=== PATIENT | male | born 1980 | race Caucasian/White ===

== ENCOUNTER 2025-05-16 09:26 | Outpatient (CLI) | payer BC, SELFPAY ==
--- NOTE | ~2025-05-16 | CT_ITS ---
CT abdomen pelvis wo con Ordering provider: JERRY CameronP-C History: 45 years Male with . Calculus of kidney . Comparison: February 02, 2013 Technique: CT abdomen and pelvis without IV and without oral contrast. Automated exposure control and iterative reconstruction technique were employed. The dose-length product was 1101.73 mGy-cm. Findings: VISUALIZED LOWER CHEST: Subsegmental atelectatic changes in the left bases. UPPER ABDOMINAL ORGANS: Liver: Normal. Gallbladder: Normal. Spleen: Normal. Stomach/duodenum: Normal. Pancreas: Normal. Adrenals: Normal. Kidneys: Large stone is seen in the right renal pelvis measuring 2 x 1.3 cm. Mild right hydronephroti c changes is seen. Other smaller stones are noted. Multiple tiny stones in the left kidney upper, mid and lower poles. PELVIC ORGANS: The bladder is underfilled. BOWEL AND MESENTERY: Colon: No evidence of diverticulitis. Normal appendix. Small Bowel: Normal. No obstruction. Peritoneum/mesentery: No free air or free fluid. No mesenteric lymphadenopathy. RETROPERITONEUM: Normal aorta. No retroperitoneal lymphadenopathy. MUSCULOSKELETAL: Superficial soft tissues: Bilateral fat containing inguinal hernias. Otherwise, The superficial soft tissues are normal. Bones: Normal spine. IMPRESSION: 1. Bilateral kidney stones with the right kidney stone large in size and located in the renal pelvis . Mild right hydronephrotic changes seen. 2. No evidence of appendicitis, diverticulitis or intestinal obstruction. 3. Bilateral fat containing inguinal hernias. Reviewed, dictated and finalized at location A. IMPRESSION: 1. Bilateral kidney stones with the right kidney stone large in size and locat ed in the renal pelvis. Mild right hydronephrotic changes seen. 2. No evidence of appendicitis, diverticulitis or intestinal obstruction. 3. Bilateral fat containing inguinal hernias.
== END 2025-05-16 09:27 | disposition home or self-care (01) ==
PROVIDERS: PCP Nurse Practitioner Family; Visit Provider Nurse Practitioner Family
DX: N20.0 Calculus of kidney (principal); R10.9 Unspecified abdominal pain; K40.20 Bilateral inguinal hernia, without obstruction or gangrene, not specified as recurrent
CPT/HCPCS: 74176

== ENCOUNTER 2025-09-15 03:50 | Emergency (ER) | payer BC, SELFPAY ==
--- OUTSIDE RECORDS SUMMARY | 2025-09-12 05:52 | XMS_ITS | Encounter Summary ---
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 HI NEPHROLITHOTOMY SECONDARY SURG OPERJ CALCULUS Right Percutaneous Nephrolithotomy Second Look Right [place] [address] [place] [address] [place] [id number] Phone: tel: fax: Referral ID Status Reason Start Date Expiration Date Visits Re quested Visits Authorized [id number] 08/03/2025 1 1 Encounter Details Date Type Department Care Team (Latest Contact Info) Description 09/12/2025 5:52 AM CDT - 09/14/2025 5:50 PM CDT Hospital Encounter [facility] [address] [place] [id number] [place] [address] [place] [address] Calcium urolithiasis; Calculus of kidney Discharge Disposition: Discharge to home or self care Social History Tobacco Use Types Packs/Day Years Used Date Smoking Tobacco: Former Cigarettes Comments:Quit 2010 Alcohol Use Standard Drinks/Week Comments Yes 0 (1 standard drink = 0.6 oz pur e alcohol) Social Connection and Isolation Panel Answer Date Recorded In a typical week, how many times do you talk on the phone with family, friends, or neighbors? More than three times a week 09/13/2025 How often do you get togethe r with friends or relatives? More than three times a week 09/13/2025 How often do you attend chur ch or muslim services? Never 09/13/2025 Do you belong to any clubs o r organizations such as mandaeism groups, unions, fraternal or athletic groups, or school groups? No 09/13/2025 How often do you attend meet ings of the clubs or organizations you belong to? Never 09/13/2025 Are you , , di vorced, , never , or living with a partner? Never 09/13/2025 AUDIT-C Answer Date Recorded Q1: How often do you have a drink containing alc ohol? Monthly or less 09/12/2025 Q2: How many drinks containi ng alcohol do you have on a typical day when you are drinking? 1 or 2 09/12/2025 Q3: How often do you have si x or more drinks on one occasion? Never 09/12/2025 Overall Financial Resource Strain (CARDIA) Answe r Date Recorded How hard is it for you to pa y for the very basics like food, housing, medical care, and heating? Not very hard 09/13/2025 Hunger Vital Sign Answer Date Recorded Within the past 12 months, y ou worried that your food would run out before you got the money to buy more. Never true 09/13/20 25 Within the past 12 months, t he food you bought just didn't last and you didn't have money to get more. Never true 09/13/2025 PRAPARE - Transportation Answer Date Re corded In the past 12 months, has l ack of transportation kept you from medical appointments or from getting medications? No 08/30 In the past 12 months, has l ack of transportation kept you from meetings, work, or from getting things needed for daily living? No 09/13/2025 Housing Stability Vital Sign Answer Tai e Recorded In the last 12 months, was t here a time when you were not able to pay the mortgage or rent on time? No 09/13/2025 In the past 12 months, how m any times have you moved where you were living? 0 09/13/2025 At any time in the past 12 m [facility], were you homeless or living in a detention (including now)? No 09/13/2025 [facility] Utilities Answer Date Recorded In the past 12 months has [employer], gas, oil, or water [employer] threatened to shut off services in your home? No 09/13/2025 Personal Safety Answer Date Recorded Have you ever been in or are you currently in a harmful physical or emotional relationship or is someone making you feel afraid or unsafe? Denies 09/12/2025 Sex and Gender Information Value Date Recorded Sex Assigned at Not on file Legal Sex Male 11:36 AM CDT Gender Identity Not on file Sexual Orientation Not on file documented as of this encounter Last Filed Vital Signs Vital Sign Reading Time Taken Comments Blood Pressure 130/69 09/14/2025 7:15 AM CDT Pulse 94 09/14/2025 7:15 AM CDT Temperature 37 C (98.6 F) 09/14/2025 7:15 AM CDT Respiratory Rate 18 09/14/2025 7:15 AM CDT Oxygen Saturation 94% 09/14/2025 7:15 AM CDT Inhaled Oxygen Concentration - - Weight 113.8 kg (250 lb 14.1 oz) 09/12/2025 5:25 PM CDT Height 165.1 cm (5' 5) 09/12/2025 5:25 PM CDT Body Mass Index 41.75 09/12/2025 5:25 PM CDT documented in this encounter Functional Status * AUDIT-C Score Answer Date of Assessment Author 1 09/12/2025 6:03 AM CDT Messi Jones RN * Question Answer Date of Assessment Author Q1: How often do you have a drink containing alcohol? Monthly or less 09/12/2025 6:03 AM CDT Janette Jones RN Q2: How many drinks containing alcohol do you have on a typical day when you are drinking? 1 or 2 09/12/2025 6:03 AM CDT Janette Jones, RN Q3: How often do you have six or more drinks on one occasion? Never 09/12/2025 6:03 AM CDJanette Shen, RN documented as of this encounter Medications at Time of Discharge cephalexin (KEFLEX) 500 mg capsuleIndication s:Prophylaxis, Medical,Urinary Tract/Genitourina ry Infection Take 1 capsule (500 mg total) by mouth 2 (two) times a day for 5 days 10 capsule 09/14/2025 09/19/2025 citalopram (CeleXA) 40 mg tablet Take 1 tablet (40 mg total) by mouth every morning HYDROcodone-aceta minophen (NORCO) 5-325 mg per tabletIndications :Pain Take 1 tablet by mouth every 6 (six) hours as needed for pain for up to 3 days 9 tablet 09/13/2025 09/16/2025 tamsulosin (FLOMAX) 0.4 mg extended release capsule Take 1 capsule (0.4 mg total) by mouth nightly 30 capsule 1 09/13/2025 traZODone (DESYREL) 100 mg tablet Take 1 tablet (100 mg total) by mouth nightly as needed documented as of this encounter Ordered Prescriptions Prescription Sig Dispense Quantity Refills Last Filled Start Date End Date cephalexin (KEFLEX) 500 mg capsuleIndications :Prophylaxis, Medical,Urinary Tract/Genitourinar y Infection Take 1 capsule (500 mg total) by mouth 2 (two) times a day for 5 days 10 capsule 09/14/2025 tamsulosin (FLOMAX) 0.4 mg extended release capsule Take 1 capsule (0.4 mg total) by mouth nightly 30 capsule 1 09/13/2025 HYDROcodone-acetam inophen (NORCO) 5-325 mg per tabletIndications: Pain Take 1 tablet by mouth every 6 (six) hours as needed for pain for up to 3 days 9 tablet 09/13/2025 5 documented in this encounter Discharge Disposition Disposition Code Departure Means Destination Comment s Discharge to home or self care documented in this encounter Progress Notes * Marina Queen NP - 09/13/2025 2:18 PM CDT 09/13/25 1400: Pt seen on afternoon roundsPt returned to room following IR procedure. Pt reports pain is well controlled. He states he had large gush of fluid from right flank incision site when he urinated and feels like it is still leaking. Upon exam, dressing was saturated with clear yellow urine, small amount of serosanguinous fluid. Dressing replaced. Gauze and ABD pad placed. Discussed withDr. Ryan. Pt will have dean catheter replaced and will observe pt overnight to monitor for further leakage from site. Pt and bedside RN updated on plan of care. Restart heparin. SL IVF when tolerating PO well. [facility] * Marina Queen NP - 09/13/2025 8:38 AM CDT UROLOGY SURGERY PROGRESS NOTE Patient Name: Freddy Yu Jr. Date of : 1980 Primary Physician: Magaly Harris NP Admission Date: 09/12/2025 Length of Stay: LOS: 1 day Post-op day: 1 Day Post-Op SUBJECTIVE 09/12/2025: Right Percutaneous Nephrolithotomy by Holland Ryan MD The patient was seen/examined/discussed with Dr. Holland Ryan No acute events overnight Patient doing well, resting in bed. Reports pain to right nephrostomy tube site. Pain is well-controlled on PO tylenol and Tramadol, IVMorphine Denies chest pain, chest pressure, or SOB No nausea or vomiting, NPO this AM. Tolerated regular diet last PM Has not been up out of the bed/ambulatory d/t pain with nephrostomy tube. Reports passing flatus. Dressing to right nephrostomy tube site noted to have small amount of serosanguinous fluid. Nephrostomy tube with bloody urine and clots noted. Dean removed per orders prior to AM rounds. Denies spontaneous void at this time Review of Systems Constitutional: Negative for chills and fever. Respiratory: Negative for shortness of breath and wheezing. Cardiovascular: Negative for chest pain and palpitations. Gastrointestinal: Negative for nausea and vomiting. Genitourinary: Positive for flank pain. Nephrostomy tube to right flank draining red, bloody urine with clots Neurological: Negative for dizziness and loss of consciousness. All other systems reviewed and are negative. OBJECTIVE Vitals Most Recent : Vitals: 09/13/25 0723 BP: 131/61 Pulse: 93 Resp: 16 Temp: 36.4 ??C (97.6 ??F) SpO2: 95% In & Out I/O last 2 completed shifts: In: 2372.5 [I.V.:2372.5] Out: 1535 [Urine:1435; Blood:100] No intake/output data recorded. Recent Labs Lab Units 09/13/25 0602 09/12/25 1503 WBC K/cumm 17.32* -- RBC M/cumm 5.13 -- HEMOGLOBIN g/dL 13.9 14.9 HEMATOCRIT % 41.6 44.8 PLATELETS K/cumm 325 -- Recent Labs Lab Units 09/13/25 0602 SODIUM mmol/L 135 POTASSIUM PLASMA mmol/L 4.0 CHLORIDE mmol/L 98 CO2 mmol/L 24 ANIONGAP mmol/L 13 GLUCOSE mg/dL 147 BUN SERUM mg/dL 19 CREATININE mg/dL 0.98 CALCIUM mg/dL 9.0 Imaging Studies XR Chest 1 Vw Result Date: 09/12/2025 No priors are available for comparison. Minimal bibasilar airspace opacities, which could representatelectasis versus aspiration. No definite pleural effusion. No pneumothorax. Heart size is within normal limits. The radiology attending physician has personally reviewed this study, and had reviewed and/or edited this written report and agrees with it. Electronically signed by: Nagi Vásquez M.D. IR Nephroureteral Stent Placement New Access Right Result Date: 09/12/2025 Successful right percutaneous nephroureteral catheter placement for future he CNL. PLAN: Plans for future PCNL will be per the patient's urologist. Electronically signed by: Demetris Butler M.D. Surgical pathology report ID Type Source Tests Collected by Time Destination A : right kidney stones Tissue Calculus/calculi/stone, gross and Chemical Analysis SURGICAL PATHOLOGY Holland Ryan MD 09/12/2025 1356 Report pending Physical Exam Vitals and nursing note reviewed. Constitutional: Appearance: Normal appearance. HENT: Head: Normocephalic and atraumatic. Eyes: Pupils: Pupils are equal, round, and reactive to light. Cardiovascular: Rate and Rhythm: Normal rate and regular rhythm. Pulses: Normal pulses. Heart sounds: S1 normal and S2 normal. Pulmonary: Effort: Pulmonary effort is normal. Abdominal: Palpations: Abdomen is soft. Tenderness: There is abdominal tenderness. Comments: Nephrostomy tube to right flank draining red, bloody urine with clots. Appropriately tender on exam. Musculoskeletal: General: Normal range of motion. Skin: General: Skin is warm and dry. Capillary Refill: Capillary refill takes less than 2 seconds. Findings: No rash. Neurological: Mental Status: He is alert. Mental status is at baseline. Comments: A&O x 4 Psychiatric: Mood and Affect: Mood normal. Behavior: Behavior normal. ASSESSMENT/PLAN Principal Problem: Calculus of kidney Surgeries: 09/12/2025: Right Percutaneous Nephrolithotomy with Dr. Ryan, Holland Kothari MD Post-op day: 1 Day Post-Op Plan: NPO after midnight following Right Percutaneous Nephrolithotomy CT in am completed to assess residual stone burden Pain is well controlled with multimodal pain medication Pt scheduled to go to IR for nephrostomy removal and antegrade ureteral stent internalization Heparin held by this AM in anticipation of IR procedure Nutrition: NPO Diet. Advance diet to regular following IR procedure Continue IVF until able to tolerate adequate PO intake PRN antiemetics ordered Resp: Encouraged pulmonary toilet, Incentive spirometer 10 times/hour, early ambulation Increase activities/ambulation, encouraged sitting in the bedside chair for all meals and ambulation in the halls VTE ppx: Encouraged OOB when able, sequential compression device use, SQ Heparin, currently held. Present on Admission: Anxiety- Stable, continue home medication Hx of PVCs - no acute events JOBY on CPAP - on home CPAP, tolerating well Hx of Urolithiasis - improving Morbid Obesity, BMI 41 - lifestyle modifications Disposition & Discharge Plan: Patient was seen/examined/discussed with Dr. Holland Ryan. Care plan discussed with the patient. Discharge home possibly today vs tomorrow pending eval s/p R procedure. Plan to follow-up with Dr. Holland Ryan in 1 month for ureterogram and stent removal Code status: Full Code MAK Banuelos 09/13/2025 10:25 AM Surgical Home documented in this encounter H&P Notes * Holland Ryan MD - 09/12/2025 7:50 AM CDT I have reviewed the H&P, examined the patient, and endorse the findings as written. Plan of Care : Based on the above findings, I consider Freddy Yu Jr. to be an acceptable risk for : Procedure(s): Right Percutaneous Nephrolithotomy I have discussed the risks of this procedure including injury to surrounding anatomic structures, hemorrhage, urinoma, pneumothorax, urinoma, infection/sepsis, need for stent or nephrostomy for prolonged period, injury to the kidney, need for further surgery, inability to access kidney or stone, pos toperative pain, anesthetic complication. Source Note - Dl Mckinley DO - 09/04/2025 7:24 AM CDT Images from the original note were not included. Anesthesia Evaluation Freddy Yu Jr. is a 45 y.o. male presenting for [facility] preoperative anesthesia evaluation prior to Right Percutaneous Nephrolithotomy scheduled on 09/12/2025 with Holland Jo MD Right Percutaneous Nephrolithotomy (Right: Flank) Pre-Op Diagnosis Codes: * Calculus of kidney [N20.0] Anesthesia History: Denies personal hx of problems with anesthesia. No anesthesia problems/complications Denies known family hx of anesthesia complications. HISTORY Past Medical History Information obtained from: patient and chart. Information obtained during: In Person Neurological + Psychiatric history - anxiety Cardiovascular + Other arrhythmia - PVCs. Respiratory + Sleep apnea (JOBY) Prescribed device: PAP compliant and CPAP. Pertinent negatives: non-smoker (quit in 2010) Hepatic / Heme Hepatic/Heme system: negative Renal / + Nephrolithiasis Musculoskeletal/Pain Musculoskeletal/Pain system: negative Endocrine / Other + Obesity (BMI >30)- morbid obesity (BMI>40). Functional Capacity Functional capacity: 4-6 METs Review of Systems + palpitations + vision loss (glasses) Pertinent negatives: productive cough; wheezing; SOB; recent cold/flu; fever; chest pain; orthopnea; pedal edema; PND; Sickle Cell disease/trait; transfusion reaction; easy bruising; dizziness; muscle weakness; numbness/tingling; hard of hearing; heartburn; nausea; dysphagia; diarrhea; dentures/partials; chipped/loose teeth and abdominal pain Patient Active Problem List Diagnosis Date Noted Calculus of kidney 08/03/2025 No past medical history on file. Past Surgical History: Procedure Laterality Date LITHOTRIPSY No Known Allergies Med List Status: Nurse Complete Set By: Kathy Akers RN at 09/04/2025 7:19 AM Taking? Last Dose Start Date End Date Provider citalopram (CeleXA) 40 mg tablet -- -- -- Brittni Chau MD HYDROcodone-acetaminophen (NORCO) 5-325 mg per tablet -- -- -- Brittni Chau MD traZODone (DESYREL) 100 mg tablet -- -- -- ProviderBrittni MD -- -- -- Current Outpatient Medications: citalopram (CeleXA) 40 mg tablet HYDROcodone-acetaminophen (NORCO) 5-325 mg per tablet traZODone (DESYREL) 100 mg tablet Social History Tobacco Use Smoking Status Former Types: Cigarettes Smokeless Tobacco Not on file Tobacco Comments Quit 2010 Alcohol Use: Not At Risk (09/04/2025) AUDIT-C Frequency of Alcohol Consumption: Monthly or less Average Number of Drinks: 1 or 2 Frequency of Binge Drinking: Never Substance and Sexual Activity Drug Use Yes Frequency: 7.0 times per week Types: Marijuana, Alcohol No family history on file. PAT Physical Exam Airway Exam: Mallampati: II Cervical ROM: FROM Patient presents with ervin. Cardiovascular Exam: Rate: regular Rhythm: regular Negative for Murmur No extra heart sounds appreciated Negative for peripheral edema Pulmonary Exam: LCTA, bilat EENT Exam: trachea midline Dental Exam: Appears intact Skin Exam: Skin is warm. Current state: Patient's current state is cooperative and interactive. Vitals: 09/04/25 0720 BP: 143/94 Pulse: 74 SpO2: 99% Neuro & Vascular Studies: None Cardiac Studies: None Pulmonary Studies: None Lab Studies: CBC Lab Results Component Value Date WBC 9.06 09/04/2025 HGB 14.0 09/04/2025 HCT 40.9 09/04/2025 LABPLAT 264 09/04/2025 MPV 9.2 09/04/2025 RBC 5.03 09/04/2025 MCV 81.3 09/04/2025 MCH 27.8 09/04/2025 MCHC 34.2 09/04/2025 RDWCV 13.9 09/04/2025 RDWSD 40.5 09/04/2025 NRBCABS 0.00 09/04/2025 Type & Screen Lab Results Component Value Date ABORH O Negative 09/04/2025 IDCOOMB Negative 09/04/2025 Coagulation Studies Lab Results Component Value Date PT 12.1 09/04/2025 INR 1.07 09/04/2025 APTT 32 09/04/2025 CMP/BMP Lab Results Component Value Date SODIUM 136 09/04/2025 POTASSIUM 3.7 09/04/2025 CHLORIDE 103 09/04/2025 CO2 23 09/04/2025 ANIONGAP 10 09/04/2025 BUNSER 15 09/04/2025 CREATININE 0.88 09/04/2025 GFRNAA >90 09/04/2025 GLUCOSE 93 09/04/2025 CALCIUM 9.0 09/04/2025 A1C Lab Results Component Value Date HGBA1C 5.5 09/04/2025 Urine studies Lab Results Component Value Date COLORU Yellow 09/04/2025 CLARITYU Clear 09/04/2025 SPECGRAVU 1.026 09/04/2025 PHURINE 7.0 09/04/2025 KETONESU Negative 09/04/2025 NITRITEU Negative 09/04/2025 LEUKESTUR 1+ (A) 09/04/2025 PROTURQL 1+ (A) 09/04/2025 BLOODUR Trace (A) 09/04/2025 UROBILINOGEN <2.0 09/04/2025 Urine microbiology Lab Results Component Value Date WBCU 6-10 (A) 09/04/2025 RBCU 0-2 09/04/2025 EPISQUAMU 1-5 09/04/2025 HYALCASTU 1-5 09/04/2025 MUCUSU Present (A) 09/04/2025 BACTERIAU Trace (A) 09/04/2025 Urine culture No results found for: MICROBIOLOGY Assessment & Plan: Freddy Yu Jr. is a 45 y.o. male with no clinical risk factors per ACC/AHA guidelines with moderate functional capacity for an intermediate risk procedure. Indicated lab/diagnostic studies were ordered per anesthesia guidelines and results reviewed. The patient received education regarding the pre-operative and post-operative period, including instructions on using the surgical scrub kit the night prior to surgery and the morning of surgery to decrease the risk of infection. The patient was instructed to call their surgeon should they develop an infection prior to surgery. The patient verbalized understanding of the education received and was allowed to ask questions as needed. A paper copy of the instructions was provided to the patient. SEC evaluation complete on 09/04/25 at 10:34 AM. Nitish index score: 100 DOS Physical Exam , , Medical history, medications, and allergies reviewed. Attestation: With today's edits, I endorse the findings of the anesthesia pre-evaluation assessment dated: 09/12/2025. Airway Exam: Mallampati: II Cervical ROM: FROM Cardiovascular Exam: Rate: regular Rhythm: regular Pulmonary Exam: (Non-labored breathing) Dental Exam: Appears intact Current state: Patient's current state is cooperative. Anesthesia Plan ASA 3 My patient is approved for the Anesthesia Controlled Medication protocol when under care of a BLACK TOP RAKER Planned anesthesia: General Team communication plan: oral ET tube Induction: Induction: intravenous. Postoperative Plan: Postoperative administration opioids intended. No postoperative mechanical ventilation intended. Patient's planned disposition post procedure is Floor. Informed Consent: Discussed plan with BLACK TOP RAKER. Anesthesia plan and risks discussed with patient. Consent and Attending signature: I and/or my designee have discussed the anesthesia plan, benefits, possible alternatives, parental presence at time of induction (if indicated), and clinically relevant risks that may include dental injury, unintentional awareness, and/or other complications. The patient and/or parent/legal guardian understand, and agree to proceed. All questions answered. documented in this encounter Miscellaneous Notes * Plan of Care - Miguelina Donahue RN - 09/14/2025 8:49 AM CDT 09/14/25 0849 Discharge Summary Discharge Disposition Private residence Recommended Discharge Level of Care Private residence Actual Discharge Level of Care Private residence Post Acute Care Plan Post Acute Care Needs Identified No Discharge Additional Assistance Does the patient need discharge transport arranged? No Pt to discharge home today with no needs. * Plan of Care - Allie Reeves RN - 09/14/2025 3:29 AM CDT Problem: Discharge Planning Goal: Understanding discharge needs will improve Outcome: Adequate for Discharge Problem: Lack of Knowledge Goal: Ability to develop a pain control plan will improve Outcome: Adequate for Discharge Problem: Medication Goal: Satisfaction with pain management medication regimen will improve Outcome: Adequate for Discharge Problem: Sensory Goal: Ability to identify factors that increase pain levels will improve while working to decrease the patient's pain levels Outcome: Adequate for Discharge Problem: Coping Goal: Ability to cope will improve Outcome: Adequate for Discharge Problem: Health Behavior Goal: Identification of resources available to assist in meeting health care needs will improve Outcome: Adequate for Discharge Problem: Genitourinary Goal: Urinary catheter remains patent Outcome: Adequate for Discharge Goals: Summary: pt states 0/10 pain. Pt's dean is patent and discharge from old nephro site is minimal. Pt has been sleeping well throughout the shift with no complaints or acute changes. * Plan of Care - Bita Aldridge RN - 09/13/2025 6:35 PM CDT Problem: Discharge Planning Goal: Understanding discharge needs will improve Outcome: Progressing Problem: Lack of Knowledge Goal: Ability to develop a pain control plan will improve Outcome: Progressing Problem: Coping Goal: Ability to cope will improve Outcome: Progressing Problem: Genitourinary Goal: Urinary catheter remains patent Outcome: Progressing Goals: Summary: Patient went to IR today and came back with no complaints of pain. Nephrostomy tube site still leaking. Reinserted dean. Tolerating current diet. Needs attended. Call light within reach. * Post-Procedure Note - Lauri Marshall MD - 09/13/2025 12:55 PM CDT Radiology Brief Post Procedure Note Attending: Joanna Child Development Assistant: none Sedation/Anesthesia: Min Sedation Pre-Op/Pre-Procedure Diagnosis: s/p PCNL Post-Op/Post-Procedure Diagnosis: as above Procedure Performed: conversion of PCNU to double J stent. Procedure Findings: indwelling PCNU retracted 16 dean not in renal pelvis, distal NU catheter in distal ureter. Convertd to 24 cm 8.5 fr double J. Debris in collecting system/calcyes Complications: None Estimated Blood Loss: < 30 ml Specimens: None Condition: Stable Full report to follow. * Initial Assessments - Miguelina Donahue RN - 09/13/2025 12:48 PM CDT CM Initial Assessment Interview Note Information Obtained From: Patient (09/13/251245) Admission Source: Planned Procedure Impression: Calculus of Kidney Plan Includes: Anticipate discharge home Additional Information: Demographics verified. Pt lives alone and is independent at home. Family able to assist at home if needed. Pt doesn't use any DME. Family to provide transportation at discharge. Primary Source of Transportation: Does the patient need discharge transport arranged?: No (09/13/251245) Health Insurance Coverage: BCBS Prescription Coverage: Yes Pharmacy: No Pharmacies Listed Primary Care Provider: Magaly Harris NP Prior to Admission: Functional Status: Independent with ADLs Primary Caregiver: Self Support System: Spouse/Significant Other, Parent When was the last time you have seen your PCP?: Within last 6 months Home Care Services: No Durable Medical Equipment: None Living Arrangements: Alone Type of Residence: Private residence Medication management: Independent (09/13/251245) SDOH: Transportation: In the past 12 months, has lack of transportation kept you from medical appointments or from getting medications?: No In the past 12 months, has lack of transportation kept you from meetings, work, or from getting things needed for daily living?: No (09/13/251243) Financial Resource: How hard is it for you to pay for the very basics like food, housing, medical care, and heating?: Not very hard (09/13/251243) Housing: In the last 12 months, was there a time when you were not able to pay the mortgage or rent on time?: No In the past 12 months, how many times have you moved where you were living?: 0 At any time in the past 12 months, were you homeless or living in a detention (including now)?: No (09/13/251243) Utilities: No, (09/13/251243) Social Connections: In a typical week, how many times do you talk on the phone with family, friends, or neighbors?: More than three times a week How often do you get together with friends or relatives?: More than three times a week How often do you attend mandaeism or muslim services?: Never Do you belong to any clubs or organizations such as mandaeism groups, unions, fraternal or athletic groups, or school groups?: No How often do you attend meetings of the clubs or organizations you belong to?: Never Are you , , , , never , or living with a partner?: Never (09/13/251244) Food Insecurity: Within the past 12 months, you worried that your food would run out before you got the money to buymore.: Never true Within the past 12 months, the food you bought just didn't last and you didn't have money to get more.: Never true (09/13/251244) Behavioral Health Services: Anticipated Level of Care: Anticipated discharge level of care: Private residence Pt/Family agrees with Anticipated Level of Care: Yes (09/13/251245) Patient expects to be Discharged to: Private residence, (09/13/251245) Patient's Identified Problem/Goal Problem: Ensure acute medical needs are met and that patient has a safe discharge plan. Goal: Secure a discharge plan that patient/family are agreeable with and ensure patient has continuum of care. Case management will follow for discharge planning and send referrals as needed. Miguelina Donahue RN * Pre-Procedure Note - Lauri Marshall MD - 09/13/2025 12:16 PM CDT Radiology Short Sedation Form Indication: 45 y/o M s/p right PCNU presents for conversion to internal double J Planned Procedure: conversion of right PCNU to double J stent Planned Sedation/Anesthesia: minimal sedation Adjunctive Procedures: NONE History of Sedation/Anesthesia Complications: No See H&P dated 09/13/25 for details of history, review of systems, physical exam, labs, imaging data and assessment. Changes in patient condition since prior assessment: none Most Recent Vitals: Vitals: 09/13/25 1143 BP: 140/79 Pulse: 98 Resp: 18 Temp: 36.8 ??C (98.3 ??F) SpO2: 92% Airway assessment: normal ASA Score: ASA 2 - Patient with mild systemic disease with no functional limitations NPO time: after midnight Benefits, risks and alternatives of procedure and planned sedation have been discussed with the patient and/or their reimbursement representative. All questions answered and they agree to proceed. * Plan of Care - Manuela Willams RN - 09/13/2025 6:34 AM CDT Goals: Monitor pain mgmt, medications and dean and neph tube care Summary: Nursing to Nursing Communication FATIMAH: DC Transport barriers: No PT/OT orders: No CM anticipated level of care: independent Mobility Barriers (i.e patient refusal, surgical restrictions, safety concerns, etc.): none Lines/Drains: Peripheral IV 09/12/25 20 G Left;Posterior Hand (Active) Nephrostomy Right 18 Fr. (Active) Wound 09/12/25 Skin Tear Other (Comment) (Active) Last BM: Last BM Date: 09/11/25 Medical Barriers: IV medications Incomplete Orders/Imaging/Consults: Significant events over the last shift: Pt states pain is managed with iv and oral pain medications. Zofran given along with iv pain medications for nausea prevention. Dean catheter d/c'd per order this am, due to void by 1130. Nephrostomy tube with red output. Went to CT KUB this am. Pt is NPO . Will continue to monitor and assess. * Plan of Care - Bita Aldridge RN - 09/12/2025 5:57 PM CDT Problem: Discharge Planning Goal: Understanding discharge needs will improve Outcome: Progressing Problem: Lack of Knowledge Goal: Ability to develop a pain control plan will improve Outcome: Progressing Problem: Medication Goal: Satisfaction with pain management medication regimen will improve Outcome: Progressing Problem: Coping Goal: Ability to cope will improve Outcome: Progressing Goals: Summary: Patient alert and oriented. Pain medication given when due and needed. Instructed on the importance of IS. SCD's on. * Op Note - Holland Ryan MD - 09/12/2025 1:00 PM CDT SURGEON: Holland Ryan M.D. PREOPERATIVE DIAGNOSIS: Right Renal Stone. POSTOPERATIVE DIAGNOSIS: Right Renal Stone. PROCEDURES PERFORMED: Right percutaneous nephrolithotomy, greater than 2 cm. 2. Antegrade Nephrostogram. 3. Dilation of existing tract, percutaneous, for an endourologic procedure including imaging guidance and all associated radiological supervision and interpretation, with postprocedure tube placement. COMPLICATIONS: None apparent. EBL 100 mL. DRAINS: 16F Dean 18F [place] Right Percutaneous Nephrostomy 6F Right Pup Stent INDICATION FOR PROCEDURE: This pleasant patient was found to have nephrolithiasis. The patient presents today for definitive stone management with percutaneous nephrolithotomy. They understand the risks of the procedure include, but are not limited to infection, bleeding, pain, injury to the kidney, ureter, bladder, injury to surrounding structures, need for additional operations, and complication of the anesthetic. They understand and agree to proceed. DESCRIPTION OF OPERATION: Informed consent was obtained. Patient was taken to the intervention radiology suite where they underwent nephroureteral stent insertion through the lower pole calyx. For details of this procedure, please see dictated summary. They were then was brought to the operating room and given preoperative IV antibiotics. Anesthesia was induced. They were prepped and draped in the normal sterile fashion in the supine position. We inserted a flexible cystoscope through the urethra into the bladder. We grasped the nephroureteral stent. It was brought out through the urethral meatus. A 16-Monegasque Dean catheter was inserted. We then placed the patient in a prone position. All pressure points were padded. We again prepped. A 2 cm incision was made adjacent to the wires. We then dilated with an 8/10 coaxial dilator in order to achieve 2- wire access. We advanced the NephroMax balloon into the mid pole calyx. An access sheath was inserted, under fluoroscopic guidance. We then inserted the rigid nephroscope. We encountered multiple stones that evacuated using the ultrasound device and suction silk spotter. Once all stone fragments were evacuated, we inserted a flexible cystoscope. We inspected each calyx under fluoroscopic guidance. We then removed residual stones with the ZeroTip basket and sent these as specimen. Again, an antegrade nephrostogram was performed. There was no extravasation and there were no residual filling defects. We passed the flexible scope into each calyx and there were no residual significant stones seen. We then placed a 6- Monegasque single-J stent with a curl in the bladder and over the stent, a 18-Monegasque [place] tip catheter to act as a nephrostomy tube. The stent was secured to the skin. The skin was closed with horizontal mattress 3-0 chromic suture. A pressurized dressing was placed and patient was taken to the recovery room in stable condition. DISPOSITION: The patient will have a CT scan performed tomorrow and we will proceed with additional interventions as necessary per the imaging. * Post-Procedure Note - Demetris Butler MD - 09/12/2025 8:29 AM CDT Vascular and Interventional Radiology Brief Post Procedure Note Attending: Demetris Butler MD Child Development Assistant: None Sedation/Anesthesia: Min Sedation Pre-Op/Pre-Procedure Diagnosis: Right renal calculus Post-Op/Post-Procedure Diagnosis: as above Procedure Performed: Right NUS placement Procedure Findings: Successful right NUS placement via right lower pole Complications: None Estimated Blood Loss: < 30 ml Specimens: None Condition: Stable Full report to follow. * Pre-Procedure Note - Demetris Butler MD - 09/12/2025 8:28 AM CDT Radiology Long Sedation Form Indication: Right renal calculus Planned Procedure: Right NUS Planned Sedation/Anesthesia: minimal sedation History: 45M with staghorn calculus in the right kidney. PMH/PSH: Past Medical History: Diagnosis Date JOBY on CPAP Palpitations w/increased movement intermittently and lots of caffeine Past Surgical History: Procedure Laterality Date LITHOTRIPSY ROS: Review of systems per HPI and otherwise all other systems are negative Allergies: Patient has no known allergies. Current Meds: Current Facility-Administered Medications: Carrier Fluids for Secondary Infusion - 0.9% Sodium Chloride, 30 mL, intravenous, PRN, Jim Holman PA Saline lock IV, , , Once AND sodium chloride 0.9% flush 0.5-20 mL, 0.5-20 mL, intra-catheter, Q8H RHETT (ALT) AND sodium chloride 0.9% flush 0.5-20 mL, 0.5-20 mL, intra-catheter, PRN AND Carrier Fluids for Secondary Infusion - 0.9% Sodium Chloride, 30 mL, intravenous, PRN, Jim Holman PA cefTRIAXone (ROCEPHIN) 2,000 mg/20 mL in sterile water (premix) 2,000 mg, 2,000 mg, intravenous, Once, Holland Ryan MD dextrose (D10W) 10% bolus 250 mL, 250 mL, intravenous, Once PRN, Dl Mckinley DO fentaNYL (SUBLIMAZE) preservative free injection, , intravenous, PRN, Demetris Butler MD, 50 mcg at 09/12/25 0827 Lactated Ringer's (LR) infusion, 30 mL/hr, intravenous, Continuous, Jim Holman PA, Last Rate: 30 mL/hr at 09/12/25 0702, 30 mL/hr at 09/12/25 0702 lidocaine (PF) (XYLOCAINE) 10 mg/mL (1 %) preservative free injection 2-10 mg, 0.2-1 mL, other, Once PRN, Jim Holman PA lidocaine (PF) (XYLOCAINE) 10 mg/mL (1 %) preservative free injection, , , PRN, Demetris Butler MD, 10 mL at 09/12/25 0821 midazolam (VERSED) 1 mg/mL injection, , , PRN, Demetris Butler MD, 1 mg at 09/12/25 0827 sodium chloride 0.9% flush 0.5-20 mL, 0.5-20 mL, intra-catheter, PRN, Jim Holman PA sodium chloride 0.9% flush 0.5-20 mL, 0.5-20 mL, intra-catheter, Q8H RHETT, Dl Mckinley DO sodium chloride 0.9% flush 0.5-20 mL, 0.5-20 mL, intra-catheter, PRN, Dl Mckinley DO Physical exam: General: Not in acute distress, alert and oriented x3 Respiratory: Clear to auscultation bilaterally, normal respiratory effort Cardiovascular: Regular rate Abdomen: Soft, nondistended, nontender Extremities: No edema Most Recent Vitals: Vitals: 09/12/25 0810 BP: 131/79 Pulse: 82 Resp: 17 Temp: SpO2: 100% Airway Assessment: normal Labs/Imaging: reviewed Assessment: Right NUS placement for future PCNL ASA Score: 2 NPO time: after midnight Benefits, risks and alternatives of procedure and planned sedation have been discussed with the patient and/or their reimbursement representative. All questions answered and they agree to proceed. documented in this encounter Plan of Treatment Pending Results Name Type Priority Associated Diagnoses Date /Time Stone analysis Lab Routine 09/12/2025 1:56 PM CDT Scheduled Orders Name Type Priority Associated Diagnoses Order Schedule Surgical pathology Pathology and Cytology Timed Calculus of kidney Release Upon Ordering for 1 Occurrences starting 09/12/2025 Stone analysis Lab Routine Once for 1 Occurrences starting 09/12/2025 until 09/12/2025 documented as of this encounter Procedures Procedure Name Priority Date/Time Associated Diagnosis Comments EGFR Routine 09/14/2025 4:32 AM CDT CBC WITHOUT DIFFERENTIAL Routine 09/14/2025 4:32 AM CDT BASIC METABOLIC PANEL Routine 09/14/2025 4:32 AM CDT XR ABDOMEN AP 1 VIEW IP Routine 09/13/2025 3:36 PM CDT URETERAL STENT PLACEMENT VIA EXISTING TRACT RIGHT IP Routine 09/13/2025 12:52 PM CDT EGFR Routine 09/13/2025 6:02 AM CDT CBC WITHOUT DIFFERENTIAL Routine 09/13/2025 6:02 AM CDT BASIC METABOLIC PANEL Routine 09/13/2025 6:[address] KUB STONE WO CONTRAST IP Routine 09/13/2025 4:32 AM CDT HEMOGLOBIN AND HEMATOCRIT STAT 09/12/2025 3:03 PM CDT XR CHEST 1 VIEW ED Urgent/IP Urgent 09/12/2025 2:48 PM CDT FL FLUOROSCOPY < 1 HOUR IP Routine 09/12/2025 2:02 PM CDT PERCUTANEOUS NEPHROLITHOTOMY 09/12/2025 12:31 PM CDT Calculus of kidney B CHECK SAMPLE STAT 09/12/2025 12:16 PM CDT NEPHROURETERAL STENT PLACEMENT NEW ACCESS RIGHT Schedule Routine, Read Routine (OP Routine) 09/12/2025 8:09 AM CDT Calcium urolithiasis documented in this encounter Results * eGFR (09/14/2025 4:32 AM CDT) eGFR >90 >=60 mL/min/1. 73 m2 Comment: Interpretive Data Reference Interval Normal >/= 90 mL/min/1.73m2 Mildly decreased* 60 - 89 mL/min/1.73m2 Mildly to moderately decreased 45 - 59 mL/min/1.73m2 Moderately to severely decreased 30 - 44 mL/min/1.73m2 Severely decreased 15 - 29 mL/min/1.73m2 Kidney Failure < 15 mL/min/1.73m2 *Relative to young adult level Estimated glomerular filtration rate is determined by the 2020 CKD-EPI equation recommended by the National Kidney Foundation (A Unifying Approach to GFR Estimation: Recommendations of the NKF-ASK Task Force on Reassessing the Inclusion of Race in Diagnosing Kidney Disease, JASN 2020). The CKD-EPI equation should not be used for patients with unstable renal function and has not been validated in children and those over 70. Current interpretive data was last reviewed 2021. Blood 09/14/2025 4:32 AM CDT 09/14/2025 5:59 AM CDT Holland Ryan MD LAB BLOOD ORDERABLES Final Result [facility] [address] Department [place] [address] * (ABNORMAL) Basic metabolic panel (09/14/2025 4:32 AM CDT) Pathologist [facility] Sodium 139 135 - 145 mmol/L Potassium, pl 3.6 3.3 - 4.9 mmol/L [facility] Chloride 102 97 - 110 mmol/L [facility] CO2 25 22 - 32 mmol/L [facility] Anion gap 12 2 - 15 mmol/L [facility] BUN 19 6 - 25 mg/dL [facility] Creatinine 0.92 0.80 - 1.30 mg/dL [facility] Glucose 83 70 - 199 mg/dL [facility] Comment: Interpretive Data Fasting glucose >/= 126 mg/dl is diagnostic for diabetes. Fasting is defined as no caloric intake for at least 8 hours. Fasting glucose between 100 mg/dl to 125 mg/dl is diagnostic of prediabetes. In a patient with classic symptoms of hyperglycemia or hyperglycemic crisis, a random glucose >/= 200 mg/dl is diagnostic for diabetes. In the absence of unequivocal hyperglycemia, results should be confirmed by repeat testing. The classification and Diagnosis of Diabetes Diabetes Care 202; 46: S19-S40. Current interpretive data was last revised 2022. Calcium 8.1(L) 8.5 - 10.3 mg/dL [facility] Blood 09/14/2025 4:32 AM CDT 09/14/2025 5:59 AM CDT Holland Ryan MD LAB BLOOD ORDERABLES Final Result [facility] [address] Department [place] [address] * (ABNORMAL) CBC without differential (09/14/2025 4:32 AM CDT) WBC 11.95(H) 3.80 - 9.90 K/cumm Hgb 13.0 13.0 - 17.5 g/dL [facility] Hct 39.1 38.9 - 50.3 % [facility] Plt 238 150 - 400 K/cumm [facility] MPV 9.4 9.1 - 12.3 fL [facility] RBC 4.68 4.30 - 5.80 M/cumm [facility] MCV 83.5 81.3 - 96.4 fL [facility] MCH 27.8 27.1 - 33.3 pg [facility] MCHC 33.2 32.3 - 35.7 g/dL [facility] RDW CV 14.2 11.1 - 14.9 % [facility] RDW SD 43.1 35.7 - 48.1 fL [facility] NRBC abs 0.00 0.00 - 0.01 K/cumm [facility] Blood 09/14/2025 4:32 AM CDT 09/14/2025 5:59 AM CDT Holland Ryan MD LAB BLOOD ORDERABLES Final Result [facility] [address] Department [place] [address] * X-ray abdomen 1 view (09/13/2025 3:36 PM CDT) Anatomical Region Laterality Modality Body, Abdomen N/A Computed Radiogr aphy 09/13/2025 4:19 PM CDT Impressions 09/13/2025 4:19 PM CDT 1. Right nephroureteral stent with the tip terminating in the left lower quadrant of the pelvis. 2. Gaseous distention of the colonic bowel loops, likely representing developing ileus. Electronically signed by: Ambrose Kohli MD Narrative 09/13/2025 4:19 PM CDT EXAM: XR ABDOMEN AP 1 VIEW, 09/13/2025 2:35 PM HISTORY: postoperative care COMPARISON: CT abdomen pelvis 09/13/2025 FINDINGS: There is right nephroureteral stent looping and terminating in the left lower quadrant of the pelvis Diffuse gaseous distention of the colonic bowel loops likely represents ileus in the recent postoperative setting. Osseous structures are normal. Procedure Note Ambrose Kohli MD - 09/13/2025 EXAM: XR ABDOMEN AP 1 VIEW, 09/13/2025 2:35 PM HISTORY: postoperative care COMPARISON: CT abdomen pelvis 09/13/2025 FINDINGS: There is right nephroureteral stent looping and terminating in the left lower quadrant of the pelvis Diffuse gaseous distention of the colonic bowel loops likely represents ileus in the recent postoperative setting. Osseous structures are normal. IMPRESSION: 1. Right nephroureteral stent with the tip terminating in the left lower quadrant of the pelvis. 2. Gaseous distention of the colonic bowel loops, likely representing developing ileus. Electronically signed by: Ambrose Kohli MD Holland Ryan MD IMG XR PROCEDURES Fi nal Result * IR Ureteral Stent Placement Via Existing Tract Right (09/13/2025 12:52 PM CDT) Anatomical Region Laterality Modality Body Right X-Ray Angiograph y 09/13/2025 3:32 PM CDT Impressions 09/13/2025 3:32 PM CDT Successful internalization of a right nephroureteral catheter to a double-J ureteral stent detailed above. Plan: Stent management by the patient's urologist. Electronically signed by: Lauri Marshall M.D. Narrative 09/13/2025 3:32 PM CDT EXAM : INTERNALIZATION OF A SIDE NEPHROURETERAL STENT TO A DOUBLE-J URETERAL STENT HISTORY: 45-year-old status post right-sided PCNL presents for conversion of PCNU to double-J stent SEDATION: Moderate conscious sedation was administered under the attending physician's direction and continuous monitoring by a trained nurse specialist who was independent from those actually performing the procedure. The total monitored conscious time was 7minutes. TECHNIQUE/FINDINGS: The risks, benefits and alternatives were discussed and informed consent was obtained. Prior to beginning the procedure, [place] Protocol was performed to confirm the patient?s identity and the planned procedure. The fluoroscopy time has been recorded in the electronic medical record. Maximum sterile barriers including cap, mask, hand hygiene, sterile gloves, sterile gown, large sterile drape and 2% chlorhexidine for cutaneous antisepsis were used. The right flank catheter was sterilely prepped and draped. An Amplatz wire was advanced through the ureteral catheter into the bladder and used to estimate the ureteral distance. The indwelling PCNU was removed. Over the Amplatz wire a 26 cm 8.5 Monegasque double-J ureteral stent was advanced with the distal loop in the bladder and proximal loop in the renal pelvis. Antegrade nephrostogram demonstrated patent ureteral stent with mild hemorrhagic debris within the upper collecting system/pelvis in the collecting system. All sheaths and catheters were removed. A sterile dressing was applied. Estimated Blood Loss: Minimal. Condition: Stable Discharged to: Inpatient unit Findings: No significant hydroureteronephrosis. Hemorrhagic debris seen within the upper pole collecting system. Procedure Note Lauri Marshall MD - 09/13/2025 EXAM : INTERNALIZATION OF A SIDE NEPHROURETERAL STENT TO A DOUBLE-J URETERAL STENT HISTORY: 45-year-old status post right-sided PCNL presents for conversion of PCNU to double-J stent SEDATION: Moderate conscious sedation was administered under the attending physician's direction and continuous monitoring by a trained nurse specialist who was independent from those actually performing the procedure. The total monitored conscious time was 7minutes. TECHNIQUE/FINDINGS: The risks, benefits and alternatives were discussed and informed consent was obtained. Prior to beginning the procedure, [place] Protocol was performed to confirm the patient?s identity and the planned procedure. The fluoroscopy time has been recorded in the electronic medical record. Maximum sterile barriers including cap, mask, hand hygiene, sterile gloves, sterile gown, large sterile drape and 2% chlorhexidine for cutaneous antisepsis were used. The right flank catheter was sterilely prepped and draped. An Amplatz wire was advanced through the ureteral catheter into the bladder and used to estimate the ureteral distance. The indwelling PCNU was removed. Over the Amplatz wire a 26 cm 8.5 Monegasque double-J ureteral stent was advanced with the distal loop in the bladder and proximal loop in the renal pelvis. Antegrade nephrostogram demonstrated patent ureteral stent with mild hemorrhagic debris within the upper collecting system/pelvis in the collecting system. All sheaths and catheters were removed. A sterile dressing was applied. Estimated Blood Loss: Minimal. Condition: Stable Discharged to: Inpatient unit Findings: No significant hydroureteronephrosis. Hemorrhagic debris seen within the upper pole collecting system. IMPRESSION: Successful internalization of a right nephroureteral catheter to a double-J ureteral stent detailed above. Plan: Stent management by the patient's urologist. Electronically signed by: Lauri Marshall M.D. Holland Ryan MD IMG IR PROCEDURES Fi nal Result * eGFR (09/13/2025 6:02 AM CDT) eGFR >90 >=60 mL/min/1. 73 m2 Comment: Interpretive Data Reference Interval Normal >/= 90 mL/min/1.73m2 Mildly decreased* 60 - 89 mL/min/1.73m2 Mildly to moderately decreased 45 - 59 mL/min/1.73m2 Moderately to severely decreased 30 - 44 mL/min/1.73m2 Severely decreased 15 - 29 mL/min/1.73m2 Kidney Failure < 15 mL/min/1.73m2 *Relative to young adult level Estimated glomerular filtration rate is determined by the 2020 CKD-EPI equation recommended by the National Kidney Foundation (A Unifying Approach to GFR Estimation: Recommendations of the NKF-ASK Task Force on Reassessing the Inclusion of Race in Diagnosing Kidney Disease, JASN 2020). The CKD-EPI equation should not be used for patients with unstable renal function and has not been validated in children and those over 70. Current interpretive data was last reviewed 2021. Blood 09/13/2025 6:02 AM CDT 09/13/2025 6:42 AM CDT Holland Ryan MD LAB BLOOD ORDERABLES Final Result [facility] [address] Department [place] [address] * Basic metabolic panel (09/13/2025 6:02 AM CDT) Sodium 135 135 - 145 mmol/L Potassium, pl 4.0 3.3 - 4.9 mmol/L [facility] Chloride 98 97 - 110 mmol/L [facility] CO2 24 22 - 32 mmol/L [facility] Anion gap 13 2 - 15 mmol/L [facility] BUN 19 6 - 25 mg/dL [facility] Creatinine 0.98 0.80 - 1.30 mg/dL [facility] Glucose 147 70 - 199 mg/dL [facility] Comment: Interpretive Data Fasting glucose >/= 126 mg/dl is diagnostic for diabetes. Fasting is defined as no caloric intake for at least 8 hours. Fasting glucose between 100 mg/dl to 125 mg/dl is diagnostic of prediabetes. In a patient with classic symptoms of hyperglycemia or hyperglycemic crisis, a random glucose >/= 200 mg/dl is diagnostic for diabetes. In the absence of unequivocal hyperglycemia, results should be confirmed by repeat testing. The classification and Diagnosis of Diabetes Diabetes Care 202; 46: S19-S40. Current interpretive data was last revised 2022. Calcium 9.0 8.5 - 10.3 mg/dL [facility] Blood 09/13/2025 6:02 AM CDT 09/13/2025 6:42 AM CDT Holland Ryan MD LAB BLOOD ORDERABLES Final Result Performing Organization Address City/[facility]/ZIP Co de Phone Number [facility] [address] [place] [address] * (ABNORMAL) CBC without differential (09/13/2025 6:02 AM CDT) WBC 17.32(H) 3.80 - 9.90 K/cumm Hgb 13.9 13.0 - 17.5 g/dL [facility] Hct 41.6 38.9 - 50.3 % [facility] Plt 325 150 - 400 K/cumm [facility] MPV 9.2 9.1 - 12.3 fL [facility] RBC 5.13 4.30 - 5.80 M/cumm [facility] MCV 81.1(L) 81.3 - 96.4 fL [facility] MCH 27.1 27.1 - 33.3 pg [facility] MCHC 33.4 32.3 - 35.7 g/dL [facility] RDW CV 14.0 11.1 - 14.9 % [facility] RDW SD 41.3 35.7 - 48.1 fL [facility] NRBC abs 0.00 0.00 - 0.01 K/cumm [facility] Blood 09/13/2025 6:02 AM CDT 09/13/2025 6:43 AM CDT Holland Ryan MD LAB BLOOD ORDERABLES Final Result [facility] [address] Department [place] [employer] [place] [address] * CT KUB Stone WO Contrast (09/13/2025 4:32 AM CDT) Anatomical Region Laterality Modality Abdomen N/A Computed Tomogra phy 09/13/2025 8:36 AM CDT Impressions 09/13/2025 8:36 AM CDT 1. Small nonobstructing left renal calculi. No hydronephrosis. 2. Right nephroureteral stent in place with a punctate calculus in the mid right kidney, adjacent to the stent. 3. Small amount of amorphous hyperdense material in the right renal collecting system may represent residual contrast or blood products from recent procedure. No hydronephrosis. Electronically signed by: MD Antonia Ulloa 09/13/2025 8:36 AM CDT EXAMINATION: CT abdomen and pelvis without contrast TECHNIQUE: Computed tomography of the abdomen and pelvis was performed without contrast. HISTORY: Evaluate stone burden after treatment COMPARISON:Outside institution examination performed May 16, 2025. FINDINGS: Abdomen Liver, Gallbladder & bile ducts: The liver is normal in appearance without contrast. There is no biliary dilation. The gallbladder is normal in appearance. Pancreas: Normal in appearance without contrast. Spleen: Normal in appearance without contrast. Adrenals: Normal in appearance without contrast. Kidneys, collecting system and ureters: There are small nonobstructing calculi in the left kidney. There is a right internal-external nephroureteral stent in place with distal end in the distal right ureter. There is a small amount of hyperdense material in the right renal collecting system. There is a punctate calculus in the mid right kidney immediately adjacent to the stent, best seen on image 71/170. There are very small bubbles of gas in the posterior right perinephric space, presumably related to recent catheter placement. There is no hydronephrosis. Retroperitoneum, lymph nodes, and vessels: There is no discrete retroperitoneal lymphadenopathy. Bowel & Mesentery: The bowel is normal in caliber. There is no obstruction. There is no appreciable mesenteric free fluid or lymphadenopathy. Pelvis Bladder: Contains a Dean catheter. Reproductive organs: No mass. Extraperitoneal, lymph nodes, vessels: There is no discrete pelvic lymphadenopathy. There are small bilateral inguinal hernias containing fat. Osseous and body wall: There are no worrisome osteolytic or osteoblastic lesions. Lower chest: The lung bases are included on the examination and show atelectasis. Procedure Note Mita Weeks MD - 09/13/2025 EXAMINATION: CT abdomen and pelvis without contrast TECHNIQUE: Computed tomography of the abdomen and pelvis was performed without contrast. HISTORY: Evaluate stone burden after treatment COMPARISON:Outside institution examination performed May 16, 2025. FINDINGS: Abdomen Liver, Gallbladder & bile ducts: The liver is normal in appearance without contrast. There is no biliary dilation. The gallbladder is normal in appearance. Pancreas: Normal in appearance without contrast. Spleen: Normal in appearance without contrast. Adrenals: Normal in appearance without contrast. Kidneys, collecting system and ureters: There are small nonobstructing calculi in the left kidney. There is a right internal-external nephroureteral stent in place with distal end in the distal right ureter. There is a small amount of hyperdense material in the right renal collecting system. There is a punctate calculus in the mid right kidney immediately adjacent to the stent, best seen on image 71/170. There are very small bubbles of gas in the posterior right perinephric space, presumably related to recent catheter placement. There is no hydronephrosis. Retroperitoneum, lymph nodes, and vessels: There is no discrete retroperitoneal lymphadenopathy. Bowel & Mesentery: The bowel is normal in caliber. There is no obstruction. There is no appreciable mesenteric free fluid or lymphadenopathy. Pelvis Bladder: Contains a Dean catheter. Reproductive organs: No mass. Extraperitoneal, lymph nodes, vessels: There is no discrete pelvic lymphadenopathy. There are small bilateral inguinal hernias containing fat. Osseous and body wall: There are no worrisome osteolytic or osteoblastic lesions. Lower chest: The lung bases are included on the examination and show atelectasis. IMPRESSION: 1. Small nonobstructing left renal calculi. No hydronephrosis. 2. Right nephroureteral stent in place with a punctate calculus in the mid right kidney, adjacent to the stent. 3. Small amount of amorphous hyperdense material in the right renal collecting system may represent residual contrast or blood products from recent procedure. No hydronephrosis. Electronically signed by: Mita Weeks MD Holland Ryan MD IMG CT PROCEDURES Fi nal Result * Hemoglobin and hematocrit (09/12/2025 3:03 PM CDT) Hgb 14.9 13.0 - 17.5 g/dL Hct 44.8 38.9 - 50.3 % [facility] Blood 09/12/2025 3:03 PM CDT 09/12/2025 3:11 PM CDT Holland Ryan MD LAB BLOOD ORDERABLES Final Result [facility] [address] Department [place] [address] * XR Chest 1 Vw (09/12/2025 2:48 PM CDT) Anatomical Region Laterality Modality Body, Chest N/A Computed Radiogr aphy 09/12/2025 3:01 PM CDT Impressions 09/12/2025 3:01 PM CDT No priors are available for comparison. Minimal bibasilar airspace opacities, which could represent atelectasis versus aspiration. No definite pleural effusion. No pneumothorax. Heart size is within normal limits. The radiology attending physician has personally reviewed this study, and had reviewed and/or edited this written report and agrees with it. Electronically signed by: Nagi Vásquez M.D. Narrative 09/12/2025 3:01 PM CDT EXAMINATION: 1 view chest radiograph Procedure Note Nagi Vásquez MD - 09/12/2025 EXAMINATION: 1 view chest radiograph IMPRESSION: No priors are available for comparison. Minimal bibasilar airspace opacities, which could represent atelectasis versus aspiration. No definite pleural effusion. No pneumothorax. Heart size is within normal limits. The radiology attending physician has personally reviewed this study, and had reviewed and/or edited this written report and agrees with it. Electronically signed by: Nagi Vásquez M.D. Holland Ryan MD IMG XR PROCEDURES Fi nal Result * FL Fluoroscopy < 1 Hour (09/12/2025 2:02 PM CDT) Narrative RAD[facility] - 09/12/2025 2:03 PM CDT The images from this study are not interpreted by Radiology. Please refer to the physician's procedure / OR operative note. Holland Ryan MD IMG FLUOROSCOPY PROC EDURES Final Result [facility] * Check Sample (09/12/2025 12:16 PM CDT) ABO Rh O Negative MBC HCLL OTHER 09/12/2025 12:1 6 PM CDT 09/12/2025 12:43 PM CDT Dl Mckinley DO LAB BLOOD ORDERABLES Final Result Performing Organization Address City/[facility]/ZIP Co de Phone Number [facility]FFAN[facility] [address] Department [place] [address] [facility] * IR Nephroureteral Stent Placement New Access Right (09/12/2025 8:09 AM CDT) Anatomical Region Laterality Modality Body Right X-Ray Angiograph y 09/12/2025 2:26 PM CDT Impressions 09/12/2025 2:26 PM CDT Successful right percutaneous nephroureteral catheter placement for future he CNL. PLAN: Plans for future PCNL will be per the patient's urologist. Electronically signed by: Demetris Butler M.D. Narrative 09/12/2025 2:26 PM CDT EXAMINATION : RIGHT PERCUTANEOUS NEPHROURETERAL CATHETER PLACEMENT FOR FUTURE PCNL HISTORY/INDICATION: Renal calculus, planned for future PCNL SEDATION: Procedural sedation was administered under the attending physician's direction and continuous monitoring by a trained nurse specialist who was independent from those actually performing the procedure. Total monitored sedation time was 20 minutes. TECHNIQUE/FINDINGS: The risks, benefits and alternatives were discussed and informed consent was obtained. Prior to beginning the procedure, [place] Protocol was performed to confirm the patient's identity and the planned procedure. The fluoroscopy time has been recorded in the electronic medical record. Maximum sterile barriers including cap, mask, hand hygiene, sterile gloves, sterile gown, large sterile drape and 2% chlorhexidine for cutaneous antisepsis were used. Initial ultrasound imaging was done to localize the kidney and to assess the collecting system as well to identify a possible calyx for initial access. The overlying skin was then prepped and draped in the usual sterile manner and 1% Lidocaine was used to achieve local anesthesia. A 21-gauge micropuncture needle was then used to access the renal collecting system under real-time ultrasound guidance with appropriate needle tip positioning documented by the aspiration of urine and by fluoroscopy following the injection of contrast. Limited contrast injection demonstrated filling defects consistent with the patient's known renal stones. A guidewire was passed into the collecting system, through the ureter and into the bladder. Contrast was then injected to confirm intraluminal placement. Then over a guidewire, a 5 Monegasque 100 cm glide catheter was advanced through the nephrostomy access and into the bladder. The catheter was then secured to the skin and a sterile dressing was applied. ESTIMATED BLOOD LOSS: Minimal. CONDITION: Stable DISCHARGED TO: PACU FINDINGS: Images from the nephrostomy access demonstrate multiple filling defects within the renal pelvis, representing the patient's known renal stones. The last fluoroscopic image demonstrates appropriate positioning of the nephro ureteral catheter looped within the bladder. Procedure Note Demetris Butler MD - 09/12/2025 EXAMINATION : RIGHT PERCUTANEOUS NEPHROURETERAL CATHETER PLACEMENT FOR FUTURE PCNL HISTORY/INDICATION: Renal calculus, planned for future PCNL SEDATION: Procedural sedation was administered under the attending physician's direction and continuous monitoring by a trained nurse specialist who was independent from those actually performing the procedure. Total monitored sedation time was 20 minutes. TECHNIQUE/FINDINGS: The risks, benefits and alternatives were discussed and informed consent was obtained. Prior to beginning the procedure, [place] Protocol was performed to confirm the patient's identity and the planned procedure. The fluoroscopy time has been recorded in the electronic medical record. Maximum sterile barriers including cap, mask, hand hygiene, sterile gloves, sterile gown, large sterile drape and 2% chlorhexidine for cutaneous antisepsis were used. Initial ultrasound imaging was done to localize the kidney and to assess the collecting system as well to identify a possible calyx for initial access. The overlying skin was then prepped and draped in the usual sterile manner and 1% Lidocaine was used to achieve local anesthesia. A 21-gauge micropuncture needle was then used to access the renal collecting system under real-time ultrasound guidance with appropriate needle tip positioning documented by the aspiration of urine and by fluoroscopy following the injection of contrast. Limited contrast injection demonstrated filling defects consistent with the patient's known renal stones. A guidewire was passed into the collecting system, through the ureter and into the bladder. Contrast was then injected to confirm intraluminal placement. Then over a guidewire, a 5 Monegas[place] 100 cm glide catheter was advanced through the nephrostomy access and into the bladder. The catheter was then secured to the skin and a sterile dressing was applied. ESTIMATED BLOOD LOSS: Minimal. CONDITION: Stable DISCHARGED TO: PACU FINDINGS: Images from the nephrostomy access demonstrate multiple filling defects within the renal pelvis, representing the patient's known renal stones. The last fluoroscopic image demonstrates appropriate positioning of the nephro ureteral catheter looped within the bladder. IMPRESSION: Successful right percutaneous nephroureteral catheter placement for future he CNL. PLAN: Plans for future PCNL will be per the patient's urologist. Electronically signed by: Demetris Butler M.D. Holland Ryan MD IM IR PROCEDURES Fi nal Result documented in this encounter Visit Diagnoses Diagnosis Calculus of kidney- Primary Calcium urolithiasis Urolithiasis Unspecified urinary calculus documented in this encounter Admitting Diagnoses Diagnosis Calculus of kidney Urolithiasis Unspecified urinary calculus documented in this encounter Administered Medications Inactive Administered Medications - up to 3 most recent administrations Medication Order MAR Action Action Date Dose Rate Site acetaminophen (TYLENOL) tablet 1,000 mg 1,000 mg, oral, Once, On Thu09/12/25 at 0645, For 1 dose, Pre-Op, Indications: Pre-Emptive AnalgesiaIndications:Pre-Emptiv e Analgesia Given 09/12/2025 7:01 AM CDT 1,000 mg acetaminophen (TYLENOL) tablet 500 mg 500 mg, oral, Every 6 hours, First dose on Thu09/12/25 at 1800, Indications: PainIndications:Pain Given 09/14/2025 12:05 PM CDT 500 mg Given 09/14/2025 6:49 AM CDT 500 mg Given 09/13/2025 5:45 PM CDT 500 mg citalopram (CeleXA) tablet 40 mg 40 mg, oral, Every morning, First dose on Thu09/13/25 at 0900 Given 09/14/2025 8:15 AM CDT 40 mg Given 09/13/2025 7:48 AM CDT 40 mg dimenhyDRINATE (DRAMAMINE) tablet 25 mg 25 mg, oral, Once, On Thu09/12/25 at 0645, For 1 dose, Pre-Op, Indications: Prevention of Nausea and VomitingIndications:Prevention of Nausea and Vomiting Given 09/12/2025 7:01 AM CDT 25 mg fentaNYL (SUBLIMAZE) preservative free injection 25 mcg 25 mcg, intravenous, Every 5 min PRN, Within 15 minutes of arrival to the PACU, maximum dose of 50 mcg total., Starting on Thu09/12/25 at 1415, For 2 doses, Phase I, Within 15 minutes of arrival to the PACU. Maximum dose of 50 mcg total, then proceed to PACU 1st line analgesic or notify the anesthesiologist if needed., Indications: PainIndications:Pain Given 09/12/2025 3:17 PM CDT 25 mcg fentaNYL (SUBLIMAZE) preservative free injection intravenous, As needed, Starting on Thu09/12/25 at 0802, Intra-Op Given 09/12/2025 8:27 AM CDT 50 mcg Given 09/12/2025 8:14 AM CDT 50 mcg Given 09/12/2025 8:02 AM CDT 50 mcg fentaNYL (SUBLIMAZE) preservative free injection intravenous, As needed, Starting on Thu09/13/25 at 1235, Intra-Op Given 09/13/2025 12:41 PM CDT 50 mcg Given 09/13/2025 12:35 PM CDT 50 mcg gabapentin (NEURONTIN) capsule 300 mg 300 mg, oral, Once, On Thu09/12/25 at 0645, For 1 dose, Pre-Op, Indications: Pre-Emptive AnalgesiaIndications:Pre-Em ptive Analgesia Given 09/12/2025 7:01 AM CDT 300 mg heparin 5,000 unit/mL injection 5,000 Units 5,000 Units, subcutaneous, Every 8 hours scheduled, First dose on Thu09/12/25 at 2200, Indications: Deep Vein Thrombosis PreventionIndications:Deep Vein Thrombosis Prevention Given 09/14/2025 6:50 AM CDT 5,000 Units Left Lower Abdomen Given 09/13/2025 9:14 PM CDT 5,000 Units L eft Lower Abdomen Given 09/13/2025 2:43 PM CDT 5,000 Units L eft Lower Abdomen HYDROmorphone (DILAUDID) injection 0.2 mg 0.2 mg, intravenous, Administer over 2 Minutes, Every 10 min PRN, 1st line for pain, Starting on Thu09/12/25 at 1415, For 10 doses, Phase I, Switch to 2nd line analgesic order if pain is uncontrolled or increasing after 1 dose. Notify Anesthesiologist if total PACU dose reaches 2 mg and pain score 5/10 or more., Indications: PainIndications:Pain Given 09/12/2025 4:14 PM CDT 0.2 mg Given 09/12/2025 4:04 PM CDT 0.2 mg ioversoL (OPTIRAY 350) injection 0.01-500 mL 0.01-500 mL, intra-catheter, Once in imaging, contrast, Starting on Thu09/12/25 at 0810, For 1 dose Contrast Given 09/12/2025 8:28 AM CDT 15 mL ioversoL (OPTIRAY 350) injection 0.01-500 mL 0.01-500 mL, intra-catheter, Once in imaging, contrast, Starting on Thu09/13/25 at 1253, For 1 dose Contrast Given 09/13/2025 12:53 PM CDT 20 mL Lactated Ringer's (LR) infusion 30 mL/hr, intravenous, Continuous, Starting on Thu09/12/25 at 0645 Restarted 09/12/2025 1:45 PM CDT Rate/Dose Verify 09/12/2025 12:32 PM CDT 30 mL/ hr New Bag 09/12/2025 7:02 AM CDT 30 mL/hr 30 mL/hr Lactated Ringer's (LR) infusion 125 mL/hr, intravenous, Continuous, Starting on Thu09/12/25 at 1800, Phase I & Post-op Floor New Bag 09/13/2025 9:44 AM CDT 125 mL/hr 125 mL/hr Rate/Dose Verify 09/13/2025 3:03 AM CDT 125 mL/hr 125 mL/ hr New Bag 09/13/2025 12:23 AM CDT 125 mL/hr 125 mL/hr lidocaine (PF) (XYLOCAINE) 10 mg/mL (1 %) preservative free injection As needed, Starting on Thu09/12/25 at 0817, Intra-Procedure (IR), Indications: Administration of Local AnesthesiaIndications:Administration of Local Anesthesia Given 09/12/2025 8:21 AM CDT 10 mL Given 09/12/2025 8:16 AM CDT 10 mL lidocaine (PF) (XYLOCAINE) 10 mg/mL (1 %) preservative free injection As needed, Starting on Thu09/13/25 at 1227, Intra-Procedure (IR), Indications: Administration of Local AnesthesiaIndications:Administration of Local Anesthesia Given 09/13/2025 12:27 PM CDT 30 mL midazolam (VERSED) 1 mg/mL injection Administer over 2 Minutes, As needed, Starting on Thu09/12/25 at 0802, Intra-Op Given 09/12/2025 8:27 AM CDT 1 mg Given 09/12/2025 8:14 AM CDT 1 mg Given 09/12/2025 8:02 AM CDT 1 mg midazolam (VERSED) 1 mg/mL injection Administer over 2 Minutes, As needed, Starting on Thu09/13/25 at 1235, Intra-Op Given 09/13/2025 12:41 PM CDT 1 mg Given 09/13/2025 12:35 PM CDT 1 mg morphine injection 2 mg 2 mg, intravenous, Administer over 4 Minutes, Every 3 hours PRN, 2nd line for pain, Starting on Thu09/12/25 at 1729, May repeat in 30 minutes if pain is uncontrolled or increasing. Max 2 doses within 1 dosing interval., Indications: PainIndications:Pain Given 09/13/2025 5:16 AM CDT 2 mg Given 09/13/2025 12:13 AM CDT 2 mg Given 09/12/2025 5:41 PM CDT 2 mg ondansetron (ZOFRAN) injection 4 mg 4 mg, intravenous, Administer over 2 Minutes, Every 6 hours PRN, nausea, vomiting, if not tolerating PO, Starting on Thu09/12/25 at 1729, Indications: nausea and vomitingIndications:nausea and vomiting Given 09/13/2025 5:16 AM CDT 4 mg Given 09/12/2025 10:31 PM CDT 4 mg ondansetron ODT (ZOFRAN-ODT) disintegrating tablet 4 mg 4 mg, oral, Every 6 hours PRN, nausea, vomiting, Starting on Thu09/12/25 at 1729, If administering by mouth, place tablet on tongue and allow to dissolve., Indications: nausea and vomitingIndications:nausea and vomiting oxyCODONE (ROXICODONE) tablet 5 mg 5 mg, oral, As needed, 1st line for pain, Starting on Thu09/12/25 at 1415, For 2 doses, Phase I, 1st ORAL choice for pain, when the patient is able to tolerate PO medications. May repeat in 1 hour if pain is uncontrolled or increasing after 1st dose., Indications: PainIndications:Pain Given 09/12/2025 2:39 PM CDT 5 mg polyethylene glycol (MIRALAX) packet 17 g 17 g, oral, Daily PRN, constipation, Starting on Thu09/12/25 at 1729, Indications: constipationIndications:constipation Given 09/14/2025 12:05 PM CDT 17 g sodium chloride 0.9% flush 0.5-20 mL 0.5-20 mL, intra-catheter, Every 8 hours scheduled (alternate), First dose on Thu09/12/25 at 1800, Flush volume based on line type and size. Given 09/14/2025 8:16 AM CDT 10 mL Given 09/13/2025 9:19 PM CDT 10 mL Given 09/12/2025 10:16 PM CDT 10 mL sodium chloride 0.9% flush 0.5-20 mL 0.5-20 mL, intra-catheter, As needed, line care, Starting on Thu09/12/25 at 1729, Flush volume based on line type and size. Flush before and after each use. Given 09/13/2025 12:13 AM CDT 10 mL sodium chloride 0.9% infusion intravenous, Continuous PRN, Starting on Thu09/13/25 at 1227, Intra-Op New Bag 09/13/2025 12:27 PM CDT 20 mL/hr 20 mL/hr traMADoL (ULTRAM) tablet 50 mg 50 mg, oral, Every 8 hours PRN, 1st line for pain, Starting on Thu09/12/25 at 1729 Given 09/12/2025 10:17 PM CDT 50 mg traZODone (DESYREL) tablet 100 mg 100 mg, oral, Nightly PRN, sleep, Starting on Thu09/12/25 at 1729 Given 09/13/2025 9:19 PM CDT 100 mg Given 09/12/2025 10:17 PM CDT 100 mg documented in this encounter Discontinued Medications Medication Sig Discontinue Reason Start Date End Da te HYDROcodone-acetaminophe n (NORCO) 5-325 mg per tabletIndications:Pain Take 1 tablet by mouth every 6 (six) hours as needed for pain 09/13/2025 documented as of this encounter Active and Recently Administered Medications Times are shown in CDT. Scheduled Medication Order 09/12/2025 09/13/2025 09/14/2025 acetaminophen (TYLENOL) tablet 1,000 mg (COMPLETED) 1,000 mg, oral, Once, On Thu09/12/25 at 0645, For 1 dose, Pre-Op, Indications: Pre-Emptive Analgesia 0701 (Given - Provider: Janette Jones RN) acetaminophen (TYLENOL) tablet 500 mg 500 mg, oral, Every 6 hours, First dose on Thu09/12/25 at 1800, Indications: Pain 1741 (Given - Provider: Bita Aldridge RN)2217 (Given - Provider: Manuela Willams RN) 0531 (Given - Provider: Manuela Willams RN)1154 (Not Given - Provider: Bita Aldridge RN - Reason: Patient not available)1745 (Given - Provider: Bita Aldridge RN)2352 (Not Given - Provider: Allie Reeves, RAJAT - Reason: Patient/family refused) 0649 (Given - Provider: Allie Reeves, RAJAT)1205 (Given - Provider: Ema Steward RN) cefTRIAXone (ROCEPHIN) 2,000 mg/20 mL in sterile water (premix) 2,000 mg (COMPLETED) 2,000 mg, intravenous, at 240 mL/hr, Administer over 5 Minutes, Once, On Thu09/12/25 at 0645, For 1 dose, Pre-Op, Administer within 60 minutes of incision., Indications: Prophylaxis, Surgical 1254 (Given - Provider: Sharron Echevarria CRNA) citalopram (CeleXA) tablet 40 mg 40 mg, oral, Every morning, First dose on Thu09/13/25 at 0900 0748 (Given - Provider: Bita Aldridge, RAJAT) 0815 (Given - Provider: Ema Steward, RN) dimenhyDRINATE (DRAMAMINE) tablet 25 mg (COMPLETED) 25 mg, oral, Once, On Thu09/12/25 at 0645, For 1 dose, Pre-Op, Indications: Prevention of Nausea and Vomiting 0701 (Given - Provider: Janette Jones, RAJAT) gabapentin (NEURONTIN) capsule 300 mg (COMPLETED) 300 mg, oral, Once, On Thu09/12/25 at 0645, For 1 dose, Pre-Op, Indications: Pre-Emptive Analgesia 0701 (Given - Provider: Janette Jones, RAJAT) heparin 5,000 unit/mL injection 5,000 Units 5,000 Units, subcutaneous, Every 8 hours scheduled, First dose on Thu09/12/25 at 2200, Indications: Deep Vein Thrombosis Prevention 2216 (Given - Provider: Manuela Willams, RAJAT) 0531 (Given - Provider: Manuela Willams, RAJAT)0626 (Held by Provider - Provider: Holland Ryan MD - Reason: Hold for Procedure)1400 (Dose Auto Held - Provider: Holland Ryan MD)1424 (Unheld by Provider - Provider: Marina Queen NP)1443 (Given - Provider: Bita Aldridge, RAJAT)2114 (Given - Provider: Allie Reeves, RAJAT) 0650 (Given - Provider: Allie Reeves, RAJAT)1535 (Not Given - Provider: Ema Steward, RAJAT - Reason: Patient/family refused) sodium chloride 0.9% flush 0.5-20 mL 0.5-20 mL, intra-catheter, Every 8 hours scheduled (alternate), First dose on Thu09/12/25 at 1800, Flush volume based on line type and size. 1741 (Given - Provider: Bita Aldridge RN)2216 (Given - Provider: Manuela Willams RN) 0752 (Not Given - Provider: Bita Aldridge RN - Reason: IV Infusing)1625 (Not Given - Provider: Bita Aldridge RN - Reason: Other)2119 (Given - Provider: Allie Reeves RN)2352 (Not Given - Provider: Allie Reeves RN - Reason: Other) 0816 (Given - Provider: Ema Steward, RN)1535 (Not Given - Provider: Eam Steward RN - Reason: Loss of IV access) Continuous Medication Order 09/12/2025 09/13/2025 09/14/2025 Lactated Ringer's (LR) infusion (CANCELED) 30 mL/hr, intravenous, Continuous, Starting on Thu09/12/25 at 0645 0702 (New Bag - Provider: Janette Jones RN)1232 (Rate/Dose Verify - Provider: Sharron Echevarria CRNA)1344 (Paused - Provider: Sharron Echevarria CRNA - Comment: Switch to gravity)1345 (Restarted - Provider: Sharron Echevarria CRNA)1425 (Anesthesia Volume Adjustment - Provider: Sharron Echevarria CRNA) 1436 (Stopped - Provider: Bita Aldridge RN) Lactated Ringer's (LR) infusion (CANCELED) 125 mL/hr, intravenous, Continuous, Starting on Thu09/12/25 at 1800, Phase I & Post-op Floor 1745 (New Bag - Provider: Bita Alrdidge RN) 0016 (Rate/Dose Verify - Provider: Manuela Willams RN)0023 (New Bag - Provider: Manuela Willams RN)0303 (Rate/Dose Verify - Provider: Manuela Willams, RN)0944 (New Bag - Provider: Bita Aldridge RN)1436 (Stopped - Provider: Bita Aldridge RN) PRN Medication Order 09/12/2025 09/13/2025 09/14/2025 Carrier Fluids for Secondary Infusion - 0.9% Sodium Chloride 30 mL, intravenous, As needed, For priming tubing and/or flushing, Starting on Thu09/12/25 at 1729, 0-250 ml/hr to flush line after IV infusions when no maintenance IV ordered. Infuse 30mL at the same rate as the secondary infusion. Run as primary IV, not intended for KVO. fentaNYL (SUBLIMAZE) preservative free injection 25 mcg (CANCELED) 25 mcg, intravenous, Every 5 min PRN, Within 15 minutes of arrival to the PACU, maximum dose of 50 mcg total., Starting on Thu09/12/25 at 1415, For 2 doses, Phase I, Within 15 minutes of arrival to the PACU. Maximum dose of 50 mcg total, then proceed to PACU 1st line analgesic or notify the anesthesiologist if needed., Indications: Pain 1517 (Given - Provider: Jane Haddad RN) fentaNYL (SUBLIMAZE) preservative free injection (COMPLETED) intravenous, As needed, Starting on Thu09/12/25 at 0802, Intra-Op 0802 (Given - Provider: Yoana Cote RN)0814 (Given - Provider: Yoana Cote RN)0827 (Given - Provider: Yoana Cote RN) fentaNYL (SUBLIMAZE) preservative free injection (COMPLETED) intravenous, As needed, Starting on Thu09/13/25 at 1235, Intra-Op 1235 (Given - Provider: Sabra Bray RN)1241 (Given - Provider: Sabra Bray RN) HYDROmorphone (DILAUDID) injection 0.2 mg (CANCELED) 0.2 mg, intravenous, Administer over 2 Minutes, Every 10 min PRN, 1st line for pain, Starting on Thu09/12/25 at 1415, For 10 doses, Phase I, Switch to 2nd line analgesic order if pain is uncontrolled or increasing after 1 dose. Notify Anesthesiologist if total PACU dose reaches 2 mg and pain score 5/10 or more., Indications: Pain 1604 (Given - Provider: Aden Sotelo RN)1614 (Given - Provider: Aden Sotelo, RAJAT) ioversoL (OPTIRAY 320) injection (CANCELED) As needed, Starting on Thu09/12/25 at 1357, Intra-Op 1357 (Given - Provider: Holland Ryan MD) ioversoL (OPTIRAY 350) injection 0.01-500 mL (COMPLETED) 0.01-500 mL, intra-catheter, Once in imaging, contrast, Starting on Thu09/12/25 at 0810, For 1 dose 0828 (Contrast Given - Provider: Riki Carlson, RT) ioversoL (OPTIRAY 350) injection 0.01-500 mL (COMPLETED) 0.01-500 mL, intra-catheter, Once in imaging, contrast, Starting on Thu09/13/25 at 1253, For 1 dose 1253 (Contrast Given - Provider: Rigoberto Monge, RT) lidocaine (PF) (XYLOCAINE) 10 mg/mL (1 %) preservative free injection (COMPLETED) As needed, Starting on Thu09/12/25 at 0817, Intra-Procedure (IR), Indications: Administration of Local Anesthesia 0816 (Given - Provider: Demetris Butler MD)0821 (Given - Provider: Demetris Butler MD) lidocaine (PF) (XYLOCAINE) 10 mg/mL (1 %) preservative free injection (COMPLETED) As needed, Starting on Thu09/13/25 at 1227, Intra-Procedure (IR), Indications: Administration of Local Anesthesia 1227 (Given - Provider: Lauri Marshall MD - Comment: on sterile field for MD use) midazolam (VERSED) 1 mg/mL injection (COMPLETED) Administer over 2 Minutes, As needed, Starting on Thu09/12/25 at 0802, Intra-Op 0802 (Given - Provider: Yoana Cote, RAJAT)0814 (Given - Provider: Yoana Cote, RAJAT)0827 (Given - Provider: Yoana Cote RN) midazolam (VERSED) 1 mg/mL injection (COMPLETED) Administer over 2 Minutes, As needed, Starting on Thu09/13/25 at 1235, Intra-Op 1235 (Given - Provider: Sabra Bray, RAJAT)1241 (Given - Provider: Sabra Bray, RAJAT) morphine injection 2 mg 2 mg, intravenous, Administer over 4 Minutes, Every 3 hours PRN, 2nd line for pain, Starting on Thu09/12/25 at 1729, May repeat in 30 minutes if pain is uncontrolled or increasing. Max 2 doses within 1 dosing interval., Indications: Pain 1741 (Given - Provider: Bita Aldridge RN) 0013 (Given - Provider: Manuela Willams, RAJAT)0516 (Given - Provider: Manuela Willams RN) ondansetron (ZOFRAN) injection 4 mg(Linked Group 1) 4 mg, intravenous, Administer over 2 Minutes, Every 6 hours PRN, nausea, vomiting, if not tolerating PO, Starting on Thu09/12/25 at 1729, Indications: nausea and vomiting 2231 (Given - Provider: Susana Morin RN) 0516 (Given - Provider: Manuela Willams RN) ondansetron ODT (ZOFRAN-ODT) disintegrating tablet 4 mg(Linked Group 1) 4 mg, oral, Every 6 hours PRN, nausea, vomiting, Starting on Thu09/12/25 at 1729, If administering by mouth, place tablet on tongue and allow to dissolve., Indications: nausea and vomiting 2231 (See Alternative - Provider: Susana Morin RN) 0516 (See Alternative - Provider: Manuela Willams RN) oxyCODONE (ROXICODONE) tablet 5 mg (CANCELED) 5 mg, oral, As needed, 1st line for pain, Starting on Thu09/12/25 at 1415, For 2 doses, Phase I, 1st ORAL choice for pain, when the patient is able to tolerate PO medications. May repeat in 1 hour if pain is uncontrolled or increasing after 1st dose., Indications: Pain 1439 (Given - Provider: Aden Sotelo RN) polyethylene glycol (MIRALAX) packet 17 g 17 g, oral, Daily PRN, constipation, Starting on Thu09/12/25 at 1729, Indications: constipation 1205 (Given - Provider: Ema Steward RN) sodium chloride 0.9% flush 0.5-20 mL 0.5-20 mL, intra-catheter, As needed, line care, Starting on Thu09/12/25 at 1729, Flush volume based on line type and size. Flush before and after each use. 0013 (Given - Provider: Manuela Willams, RAJAT) sodium chloride 0.9% infusion (COMPLETED) intravenous, Continuous PRN, Starting on Thu09/13/25 at 1227, Intra-Op 1227 (New Bag - Provider: Sabra Bray, RN) sodium chloride 0.9% irrigation (CANCELED) As needed, Starting on Thu09/12/25 at 1257, Intra-Op 1257 (Given - Provider: Holland Ryan MD - Comment: PRN suction irrigation)1340 (Given - Provider: Holland Ryan MD - Comment: PRN suction irrigation)1342 (Given - Provider: Holland Ryan MD - Comment: PRN suction irrigation)1343 (Given - Provider: Holland Ryan MD - Comment: PRN suction irrigation)1348 (Given - Provider: Holland Ryan MD - Comment: PRN suction irrigation)1357 (Given - Provider: Holland Ryan MD - Comment: PRN suction irrigation) traMADoL (ULTRAM) tablet 50 mg 50 mg, oral, Every 8 hours PRN, 1st line for pain, Starting on Thu09/12/25 at 1729 2217 (Given - Provider: Manuela Willams RN) traZODone (DESYREL) tablet 100 mg 100 mg, oral, Nightly PRN, sleep, Starting on Thu09/12/25 at 1729 2217 (Given - Provider: Manuela Willams, RAJAT) 2119 (Given - Provider: Allie Reeves RN) Linked Groups Order Group 1: ondansetron ODT (ZOFRAN-ODT) disintegrating tablet 4 mgJump to med 4 mg, oral, Every 6 hours PRN, nausea, vomiting, Starting on Thu09/12/25 at 1729, If administering by mouth, place tablet on tongue and allow to dissolve., Indications: nausea and vomiting Or ondansetron (ZOFRAN) injection 4 mgJump to med 4 mg, intravenous, Administer over 2 Minutes, Every 6 hours PRN, nausea, vomiting, if not tolerating PO, Starting on Thu09/12/25 at 1729, Indications: nausea and vomiting documented in this encounter Orders Medications Ordered That Ezra ht Not Have Been Administered Count Last Ordered Date First Ordered Date albuterol 2.5 mg /3 mL (0.08 3 %) nebulizer solution 2.5 mg 1 09/12/2025 Carrier Fluids for Secondary Infusion - 0.9% Sodium Chloride 3 09/12/2025 cefTRIAXone (ROCEPHIN) 2,000 mg/20 mL in sterile water (premix) 2,000 mg 1 09/12/2025 dextrose (D10W) 10% bolus 250 mL 2 09/12/20 dextrose (GLUTOSE) 40 % gel 15 g 1 09/12/20 diphenhydrAMINE (BENADRYL) 5 0 mg/mL injection 12.5 mg 1 09/12/2025 fentaNYL (SUBLIMAZE) preserv ative free injection 50 mcg 1 09/12/2025 glucagon injection 1 mg 1 09/12/2025 haloperidol lactate (HALDOL) injection 1 mg 1 09/12/2025 HYDROmorphone (DILAUDID) injection 0.4 mg 1 09/12/2025 insulin lispro (HumaLOG, ADM ELOG) 100 unit/mL injection 0-5 Units 1 09/12/2025 ioversoL (OPTIRAY 320) injection 1 09/12/20 labetaloL (NORMODYNE,TRANDAT E) injection 5 mg 1 09/12/2025 lidocaine (PF) (XYLOCAINE) 1 0 mg/mL (1 %) preservative free injection 2-10 mg 1 09/12/2025 naloxone (NARCAN) 0.4 mg/mL injection 0.04-0.4 mg 1 09/12/2025 ondansetron (ZOFRAN) injection 4 mg 1 09/12 ondansetron ODT (ZOFRAN-ODT) disintegrating tablet 4 mg 1 09/12/2025 racepinephrine (ASTHMANEFRIN ) 2.25 % nebulizer solution 0.5 mL 1 09/12/2025 sodium chloride 0.9% flush 0.5-20 mL 5 08/30 sodium chloride 0.9% irrigation 1 Diet Count Last Ordered Date First Orde red Date ADULT DISCHARGE DIET 1 09/14/2025 Nursing Count Last Ordered Date First Orde red Date CATHETER CARE 1 09/14/2025 DISCHARGE ACTIVITY 5 09/14/2025 DISCHARGE CALL PROVIDER 6 09/14/2025 DISCHARGE DRESSING 1 09/14/2025 DISCHARGE INSTRUCTIONS 1 09/14/2025 DEAN CATHETER - DISCONTINUE 1 09/13/2025 NURSING COMMUNICATION 1 09/12/2025 WEIGH PATIENT 1 09/12/2025 Admission Count Last Ordered Date First Orde red Date ADMIT TO INPATIENT 1 09/13/2025 INITIATE OUTPATIENT IN A BED 1 09/12/2025 Transfer Count Last Ordered Date First Orde red Date TRANSFER PATIENT TO NEW UNIT 1 09/12/2025 Discharge Count Last Ordered Date First Orde red Date DISCHARGE PATIENT 1 09/14/2025 documented in this encounter Care Teams 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
[2025-09-15 04:30] VITALS: BP 158/92; PULSE 94; RESP 14; O2SAT 98
--- OUTSIDE RECORDS SUMMARY | 2025-09-15 04:50 | XMS_ITS | Clinical Summary ---
Author Organization [facility] Address [address] [place] [address] Care Team Providers Care Bait Digger Name Role Phone Magaly Harris NP Primary Care Provider [phone] Allergies No known active allergies Medications citalopram (CeleXA) 40 mg tablet Take 1 tablet (40 mg total) by mouth every morning Active traZODone (DESYREL) 100 mg tablet Take 1 tablet (100 mg total) by mouth nightly as needed Active HYDROcodone-ac etaminophen (NORCO) 5-325 mg per tabletIndicati ons:Pain Take 1 tablet by mouth every 6 (six) hours as needed for pain for up to 3 days 9 tablet 09/13/20 25 025 Active tamsulosin (FLOMAX) 0.4 mg extended release capsule Take 1 capsule (0.4 mg total) by mouth nightly 30 capsule 1 09/13/20 25 Active cephalexin (KEFLEX) 500 mg capsuleIndicat ions:Prophylax is, Medical,Urinar y Tract/Genitour inary Infection Take 1 capsule (500 mg total) by mouth 2 (two) times a day for 5 days 10 capsule 09/14/20 25 025 Active citalopram (CeleXA) 40 mg tablet Take 1 tablet (40 mg total) by mouth daily 08/10/20 25 025 Discontinued(Er ror) HYDROcodone-ac etaminophen (NORCO) 5-325 mg per tablet Take 1 tablet by mouth every 6 (six) hours as needed 08/08/20 25 025 Discontinued(Er ror) traZODone (DESYREL) 100 mg tablet Take 1 tablet (100 mg total) by mouth nightly 08/08/20 25 025 Discontinued(Er ror) HYDROcodone-ac etaminophen (NORCO) 5-325 mg per tabletIndicati ons:Pain Take 1 tablet by mouth every 6 (six) hours as needed for pain 025 Discontinued Active Problems Problem Noted Date Diagnosed Date Urolithiasis 09/12/2025 Calculus of kidney 08/03/2025 Encounters Date Type Department Care Team Description 09/12/2025 1:00 PM CDT - 09/12/2025 3:30 PM CDT Surgery [facility] Operating Room [address] [place] [address] [phone] Holland Ryan MD Right Percutaneous Nephrolithotomy 09/12/2025 12:32 PM CDT Anesthesia Event [facility] Operating Room [address] [place] [address] [phone] Rl Sims MD Sharp, Taylor P. 09/12/2025 5:52 AM CDT - 09/14/2025 5:50 PM CDT Hospital Encounter [address] [phone] Holland Ryan MD Calcium urolithiasis; Calculus of kidney Discharge Disposition: Discharge to home or self care 09/11/2025 Orders Only [facility] - Interventional Radiology [address] [place] [address] [phone] Lexx Hermosillo, RAJAT 09/04/2025 7:15 AM CDT Pre-Admission Testing [facility] Pre Anesthesia Testing [address] [place] [address] [phone] Preoperative testing (Primary Dx); Calculus of kidney 08/04/2025 Telephone Radiology [address] [place] [address] Lauri Marshall MD 08/03/2025 Telephone Radiology [address] [place] [address] Lauri Marshall MD from Last 3 Months Surgical History Surgery Date Site/Laterality Comments LITHOTRIPSY NEPHROURETERAL STENT PLACEMENT NEW ACCESS RIGHT 2024 Right URETERAL STENT PLACEMENT VIA EXISTING TRACT RIGHT 08/30 Right Medical History Medical History Date Comments JOBY on CPAP Palpitations w/increased move ment intermittently and lots of caffeine Social History Tobacco Use Types Packs/Day Years Used Date Smoking Tobacco: Former Cigarettes Tobacco Cessation:Counseling Given: Not Answered Comments:Quit 2010 Alcohol Use Standard Drinks/Week Comments [...] week 09/13/2025 How often do you attend [facility] or scientologist services? Never 09/13/2025 Do you belong to any clubs o r organizations such as jehovah's witness groups, unions, fraternal or athletic groups, or [...] any time in the past 12 m [facility], were you homeless or living in a penitentiary (including now)? No 09/13/2025 [facility] Utilities Answer Date Recorded In the past 12 months has th e electric, gas, oil, or water company threatened to shut off services in your [...] on file Sexual Orientation Not on file Obstetrics History Last Filed Vital Signs Vital Sign Reading [...] Mass Index 41.75 09/12/2025 5:25 PM CDT Plan of Treatment Health Maintenance Due Date Last Done Comments Depression Screening 1981 Hepatitis C Screening 1981 Varicella Vaccines (1 of 2 - 13+ 2-dose series) 1994 Hepatitis B Screening 1999 Regular Well Visit/Exam 18-64 1999 HPV Vaccines (1 - 3-dose SCDM series) 2008 Covid-19 Vaccine (3 - season) 2025 11/03/2021, 03/04/2021 DTaP/Tdap/Td Vaccine (2 - Td or Tdap) 08/31/2027 08/31/2017 Influenza Vaccine Completed 08/08/2025, , 09/18/2020, Additional history exists Pneumococcal vaccine <65 Aged Out No longer eligible based on patient's age to complete this topic Medical Devices Implanted Type Area Videographer Device Identifier Shelf Expiration Date Model / Serial / Lot Deligic Amplatz 8.5fr 26cm 6 Sideport Introducer Catheter String [id number] - [id number] Implanted:Qty: 1 on 09/13/2025 at [facility] [employer] 04/14/2028 [id number] / / [id number] Procedures Procedure Name Priority Date/Time Associated Diagnosis Comments EGFR Routine 09/14/2025 4:32 AM CDT BASIC METABOLIC PANEL Routine 09/14/2025 4:32 AM CDT CBC WITHOUT DIFFERENTIAL Routine 09/14/2025 4:32 AM CDT XR ABDOMEN AP 1 VIEW IP Routine 09/13/2025 3:36 PM CDT URETERAL STENT PLACEMENT VIA EXISTING TRACT RIGHT IP Routine 09/13/2025 12:52 PM CDT EGFR Routine 09/13/2025 6:02 AM CDT BASIC METABOLIC PANEL Routine 09/13/2025 6:02 AM CDT CBC WITHOUT DIFFERENTIAL Routine 09/13/2025 6:[address] KUB STONE WO CONTRAST IP Routine 09/13/2025 4:32 AM CDT HEMOGLOBIN AND HEMATOCRIT STAT 09/12/2025 3:03 PM CDT XR CHEST 1 VIEW ED Urgent/IP Urgent 09/12/2025 2:48 PM CDT FL FLUOROSCOPY < 1 HOUR IP Routine 09/12/2025 2:02 PM CDT ID AN PROCEDURE PLACEHOLDER Routine 09/12/2025 1:18 PM CDT ID AN ELECTIVE ENDOTRACHEAL AIRWAY Routine 09/12/2025 1:18 PM CDT PERCUTANEOUS NEPHROLITHOTOMY 09/12/2025 12:31 PM CDT Calculus of kidney B CHECK SAMPLE STAT 09/12/2025 12:16 PM CDT NEPHROURETERAL STENT PLACEMENT NEW ACCESS RIGHT Schedule Routine, Read Routine (OP Routine) 09/12/2025 8:09 AM CDT Calcium urolithiasis URINALYSIS AND REFLEX TO MICROSCOPIC AND CULTURE Routine 09/04/2025 8:26 AM CDT Calculus of kidney URINALYSIS, MICROSCOPIC ONLY Routine 09/04/2025 8:25 AM CDT Calculus of kidney EGFR Routine 09/04/2025 7:59 AM CDT Calculus of kidney DIFFERENTIAL AUTO Routine 09/04/2025 7:5 9 AM CDT Calculus of kidney BASIC METABOLIC PANEL Routine 09/04/2025 7:59 AM CDT Calculus of kidney CBC WITH AUTO DIFFERENTIAL Routine 09/04/2025 7:59 AM CDT Calculus of kidney PROTIME-INR Routine 09/04/2025 7:59 AM CDT Calculus of kidney APTT Routine 09/04/2025 7:59 AM CDT Calculus of kidney HEMOGLOBIN A1C Routine 09/04/2025 7:59 AM CDT Preoperative testing TYPE AND SCREEN Routine 09/04/2025 7:58 AM CDT Preoperative testing from Last 3 Months Results * eGFR (09/14/2025 4:32 AM CDT) [...] MD LAB BLOOD ORDERABLES Final Result [facility] [address] Department [place] [address] * (ABNORMAL) CBC without differential (09/14/2025 4:32 AM CDT) WBC 11.95(H) 3.80 - 9.90 K/cumm Hgb 13.0 13.0 - 17.5 g/dL [facility] Hct 39.1 38.9 - 50.3 % [facility] Plt 238 150 - 400 K/cumm [facility] MPV 9.4 9.1 - 12.[address] [facility] RBC 4.68 4.30 - 5.80 M/cumm [facility] MCV 83.5 81.3 - 96.[address] [facility] MCH 27.8 27.1 - 33.[address] [facility] MCHC 33.2 32.3 - 35.7 g/dL [facility] RDW CV 14.2 11.1 - 14.9 % [facility] RDW SD 43.1 35.7 - 48.[address] [facility] NRBC abs 0.00 0.00 - 0.01 K/cumm [facility] Blood 09/14/2025 4:32 AM CDT 09/14/2025 5:59 AM CDT Holland Ryan MD LAB BLOOD ORDERABLES Final Result [facility] [address] Department of Laboratories [place], [place] [phone] * (ABNORMAL) Basic metabolic panel (09/14/2025 4:32 AM CDT) Sodium 139 135 - 145 mmol/L Potassium, pl 3.6 3.3 - 4.9 mmol/L [facility] Chloride 102 97 - 110 mmol/L [facility] CO2 25 22 - 32 mmol/L [facility] Anion gap 12 2 - 15 mmol/L [facility] BUN 19 6 - 25 mg/dL [facility] Creatinine 0.92 0.80 - 1.30 mg/dL [facility] Glucose 83 70 - 199 mg/dL [facility] Comment: Interpretive Data Fasting glucose >/= 126 [...] classification and Diagnosis of Diabetes Diabetes Care 2021; 46: S19-S40. Current interpretive data was last revised 2022. Calcium 8.1(L) 8.5 - 10.3 mg/dL [facility] Blood 09/14/2025 4:32 AM CDT 09/14/2025 5:59 AM CDT Holland Ryan MD LAB BLOOD ORDERABLES Final Result [facility] [address] Department [place] [address] * X-ray abdomen 1 view (09/13/2025 3:36 [...] was obtained. Prior to beginning the procedure, Carpio Protocol was performed to confirm the patient?s [...] the Amplatz wire a 26 cm 8.5 [place]alander double-J ureteral stent was advanced with the [...] was obtained. Prior to beginning the procedure, Carpio Protocol was performed to confirm the patient?s [...] the Amplatz wire a 26 cm 8.5 [place] double-J ureteral stent was advanced with the [...] Result * eGFR (09/13/2025 6:02 AM CDT) Pathologist [facility] eGFR >90 >=60 mL/min/1. 73 m2 Comment: [...] Ryan MD LAB BLOOD ORDERABLES Final Result [facility] [address] Department [place] [address] * (ABNORMAL) CBC without differential (09/13/2025 6:02 AM CDT) [facility] WBC 17.32(H) 3.80 - 9.90 K/cumm Hgb 13.9 13.0 - 17.5 g/dL [facility] Hct 41.6 38.9 - 50.3 % [facility] Plt 325 150 - 400 K/cumm [facility] MPV 9.2 9.1 - 12.[address] [facility] RBC 5.13 4.30 - 5.80 M/cumm [facility] MCV 81.1(L) 81.3 - 96.[address] [facility] MCH 27.1 27.1 - 33.[address] [facility] MCHC 33.4 32.3 - 35.7 g/dL [facility] RDW CV 14.0 11.1 - 14.9 % [facility] RDW SD 41.3 35.7 - 48.[address] [facility] NRBC abs 0.00 0.00 - 0.01 K/cumm [facility] Blood 09/13/2025 6:02 AM CDT 09/13/2025 6:43 AM CDT Holland Ryan MD LAB BLOOD ORDERABLES Final Result [facility] [address] Department [place] [address] * Basic metabolic panel (09/13/2025 6:02 AM CDT) Sodium 135 135 - 145 mmol/L Potassium, pl 4.0 3.3 - 4.9 mmol/L [facility] Chloride 98 97 - 110 mmol/L [facility] CO2 24 22 - 32 mmol/L [facility] Anion gap 13 2 - 15 mmol/L [facility] BUN 19 6 - 25 mg/dL [facility] Creatinine 0.98 0.80 - 1.30 mg/dL [facility] Glucose 147 70 - 199 mg/dL [facility] Comment: Interpretive Data Fasting glucose >/= 126 [...] 2022. Calcium 9.0 8.5 - 10.3 mg/dL [facility] Blood 09/13/2025 6:02 AM CDT 09/13/2025 6:42 AM CDT Holland Ryan MD LAB BLOOD ORDERABLES Final Result [facility] [address] Department [place] [address] * CT KUB [place] WO Contrast (09/13/2025 [...] hydronephrosis. Electronically signed by: Mita Weeks MD Narrative 09/13/2025 8:36 AM CDT EXAMINATION: CT abdomen [...] fluid or lymphadenopathy. Pelvis Bladder: Contains a Kirby catheter. Reproductive organs: No mass. Extraperitoneal, lymph [...] fluid or lymphadenopathy. Pelvis Bladder: Contains a Kirby catheter. Reproductive organs: No mass. Extraperitoneal, lymph [...] g/dL Hct 44.8 38.9 - 50.3 % [facility] Blood 09/12/2025 3:03 PM CDT 09/12/2025 3:11 PM CDT Holland Ryan MD LAB BLOOD ORDERABLES Final Result [facility] [address] Department [place] [address] * XR Chest 1 Vw (09/12/2025 2:48 [...] 1 Hour (09/12/2025 2:02 PM CDT) Narrative [facility] - 09/12/2025 2:03 PM CDT The images from this study are not interpreted by Radiology. Please refer to the physician's procedure / OR operative note. Holland Ryan MD IMG FLUOROSCOPY PROC EDURES Final Result [facility] * ID AN ELECTIVE ENDOTRACHEAL AIRWAY, ID AN PROCEDURE PLACEHOLDER (09/12/2025 1:18 PM CDT) Narrative Sharron Echevarria CRNA - 09/12/2025 1:18 PM CDT Sharron Echevarria CRNA 09/12/2025 1:27 PM Airway Patient location: OR Urgency: elective Indications for airway management: anesthesia Difficult airway: yes Maneuvers that helped ventilation: 2 person bag and mask and oral airway Factors contributing to ventilation difficulty: obesity and facial hair Maneuvers that helped intubation: stylette Staff: Placed by: Anesthesiologist: Lauri Rueda DO COGNOS BI DEVELOPER: Sharron Echevarria CRNA Emergent airway documentation: Risks and benefits discussed: yes Consent obtained: yes Consent given by: patient Airway prep: Preoxygenated: yes Patient position: sniffing Mask difficulty assessment: 1 - vent by mask Sedation level during airway: GA Final airway details: Final airway type: endotracheal airway Tube type: ETT ETT size: 7.0 mm Cuffed: yes Technique used for successful ETT placement: video laryngoscopy Insertion site: oral Video blade type: Glidescope Cormack-Lehane (video): grade IIa - partial view of glottis Initial cuff pressure: 6 cm H2O Cuff inflated with: air ETT to teeth: 22 cm Placement verified by: auscultation and CO2 detection Airway secured with: silk tape Number of attempts: 3 or more Ventilation between attempts: supraglottic airway Unsuccessful approach(es) for ETT: video laryngoscopy Additional comments: Unable to intubate pt with size 8 ETT. First attempt with Douglas, a grade 2 view was seen, unable to advance size 8 ett when stylet pulled. Pt bagged (two person with oral airway) and second attempt [employer] BI DEVELOPER was unable to obtain a good view. Dr. Rueda called to room. Pt ventilated through size 5 LMA while Glidescope was brought to room, view obtained with glidescope, but again unable to pass the size 8 ETT, successful with size 7 ETT. Three total attempts with video scope. Lauri Rueda DO ANESTHESIA ORDERABLES Fi nal Result * Check Sample (09/12/2025 12:16 PM CDT) ABO Rh O Negative MBC HCLL OTHER 09/12/2025 12:1 6 PM CDT 09/12/2025 12:43 PM CDT Dl Mckinley DO LAB BLOOD ORDERABLES Final Result [facility] [address] Department [place] [address] [facility] [place] IR Nephroureteral Stent Placement New Access [...] was obtained. Prior to beginning the procedure, Carpio Protocol was performed to confirm the patient's [...] placement. Then over a guidewire, a 5 New Zealander 100 cm glide catheter was advanced through [...] was obtained. Prior to beginning the procedure, Carpio Protocol was performed to confirm the patient's [...] placement. Then over a guidewire, a 5 [place]alander 100 cm glide catheter was advanced through [...] by: Demetris Butler M.D. Holland Ryan MD IMG IR PROCEDURES Fi nal Result * (ABNORMAL) Urinalysis reflex to microscopic and culture Urine, clean voided (09/04/2025 8:26 AM CDT) Color, ur Yellow Yellow Clarity, ur Clear Clear [facility] Specific gravity, ur 1.026 1.003 - 1.030 [facility] pH, urine 7.0 [facility] Comment: Interpretive Data U rine pH is affected by diet, medications, systemic acid-base disturbances, and renal tubular function. pH may affect urinary stone formation. For example, urine pH below 6.0 may help reduce the tendency for calcium phosphate stones and pH greater than 6.0 may reduce the tendency for uric acid stone formation. Source: [facility] Current Interpretive Data was last revised on 2017 Protein, ur ql 1+(A) Negative [facility] Glucose, ur ql Negative Negative [facility] Ketones, ur Negative Negative [facility] Bilirubin, ur Negative Negative [facility] Blood, ur Trace(A) Negative [facility] Urobilinogen, ur <2.0 <2.0 mg/dL [facility] Nitrite, ur Negative Negative [facility] Leukocyte esterase, ur 1+(A) Negative [facility] UA reflex comment Reflex to microscopic UA will be performed. [facility] Urine, clean voided 09/04/2025 8:26 AM CDT 09/04/2025 8:26 AM CDT Holland Ryan MD LAB MICROBIOLOGY - G ENERAL ORDERABLES Final Result Performing Organization Address [facility] de Phone Number [facility] [address] Department [place] [address] * (ABNORMAL) Urinalysis, microscopic only (09/04/2025 8:25 AM CDT) WBC, ur 6-10(A) 0 - 5 /HPF RBC, ur 0-2 0 - 2 /HPF [facility] Epithelial cells, squamous, ur 1-5 0 - 5 /HPF [facility] Bacteria, ur Trace(A) [facility] Mucous, ur Present(A) [facility] Hyaline casts, ur 1-5 0 - 10 /LPF [facility] Culture Reflex Comment Reflex conditions for urine culture (WBC >10) not met. [facility] Urine, clean voided 09/04/2025 8:25 AM CDT 09/04/2025 8:25 AM CDT Holland Ryan MD LAB URINE ORDERABLES Final Result Performing Organization Address [facility] Co de Phone Number [facility] [address] Department [place] [address] * eGFR (09/04/2025 7:59 AM CDT) [facility] eGFR >90 >=60 mL/min/1. 73 m2 Comment: [...] interpretive data was last reviewed 2021. Blood 09/04/2025 7:59 AM CDT 09/04/2025 7:59 AM CDT Holland Ryan MD LAB BLOOD ORDERABLES Final Result [facility] [address] Department [place] [address] * Differential, auto (09/04/2025 7:59 AM CDT) [facility] Neutrophil abs 6.14 1.50 - 6.50 K/cumm Imm gran abs 0.04 0.00 - 0.10 K/cumm [facility] Lymphocyte abs 2.20 0.80 - 3.30 K/cumm [facility] Monocyte abs 0.52 0.20 - 0.80 K/cumm [facility] Eosinophil abs 0.12 0.00 - 0.50 K/cumm [facility] Basophil abs 0.04 0.00 - 0.10 K/cumm [facility] Neutrophil pct 67.9 % [facility] Comment: Interpretive Data Percent cell count reference ranges are not reported, since discordance with absolute values may lead to misinterpretation of CBC data. Current Interpretive Data was last revised on 2018. Imm gran pct 0.4 % [facility] Comment: Interpretive Data Percent cell count reference ranges are not reported, since discordance with absolute values may lead to misinterpretation of CBC data. Current Interpretive Data was last revised on 2018. Lymphocyte pct 24.3 % [facility] Comment: Interpretive Data Percent cell count reference ranges are not reported, since discordance with absolute values may lead to misinterpretation of CBC data. Current Interpretive Data was last revised on 2018. Monocyte pct 5.7 % [facility] Comment: Interpretive Data Percent cell count reference ranges are not reported, since discordance with absolute values may lead to misinterpretation of CBC data. Current Interpretive Data was last revised on 2018. Eosinophil pct 1.3 % [facility] Comment: Interpretive Data Percent cell count reference ranges are not reported, since discordance with absolute values may lead to misinterpretation of CBC data. Current Interpretive Data was last revised on 2018. Basophil pct 0.4 % [facility] Comment: Interpretive Data Percent cell count reference ranges are not reported, since discordance with absolute values may lead to misinterpretation of CBC data. Current Interpretive Data was last revised on 2018. Blood 09/04/2025 7:59 AM CDT 09/04/2025 7:59 AM CDT Holland Ryan MD LAB BLOOD ORDERABLES Final Result [facility] [address] Department [place] [address] * CBC with auto differential (09/04/2025 7:59 AM CDT) WBC 9.06 3.80 - 9.90 K/cumm Hgb 14.0 13.0 - 17.5 g/dL [facility] Hct 40.9 38.9 - 50.3 % [facility] Plt 264 150 - 400 K/cumm [facility] MPV 9.2 9.1 - 12.[address] [facility] RBC 5.03 4.30 - 5.80 M/cumm [facility] MCV 81.3 81.3 - 96.[address] [facility] MCH 27.8 27.1 - 33.[address] [facility] MCHC 34.2 32.3 - 35.7 g/dL [facility] RDW CV 13.9 11.1 - 14.9 % [facility] RDW SD 40.5 35.7 - 48.[address] [facility] NRBC abs 0.00 0.00 - 0.01 K/cumm [facility] Blood 09/04/2025 7:59 AM CDT 09/04/2025 7:59 AM CDT Result [facility] Holland Ryan MD LAB BLOOD ORDERABLES Final Result Performing Organization Address City/[facility]/ZIP Co de Phone Number [facility] [address] [employer] [place], [place] [id number] * aPTT (09/04/2025 7:59 AM CDT) aPTT 32 26 - 38 sec Comment: Interpretive Data Heparin therapeutic range: 66.0 - 100.0 seconds. Range based on correlation with therapeutic heparin activity range of 0.3 - 0.7 Units/mL. Current interpretive data was last revised on 2023. Blood 09/04/2025 7:59 AM CDT 09/04/2025 7:59 AM CDT Holland Ryan MD LAB BLOOD ORDERABLES Final Result [facility] [address] [employer] [place], [place] [id number] * Protime-INR (09/04/2025 7:59 AM CDT) PT 12.1 10.2 - 13.5 sec INR 1.07 0.90 - 1.20 [facility] Comment: Interpretive data Oral anticoagulant therapeutic ranges: Venous thromboembolism prophylaxis or treatment: 2.0-3.0 CARDIOLOGY Standard range: 2.0-3.0 High-intensity range: 2.5-3.5 Refer to indication-specific guidelines for appropriate target ranges for prosthetic heart valve replacement. Current interpretive data was last revised on 2019. Blood 09/04/2025 7:59 AM CDT 09/04/2025 7:59 AM CDT Holland Ryan MD LAB BLOOD ORDERABLES Final Result Performing Organization Address [facility] de Phone Number [facility] [address] Department [employer] [place], [place] [id number] * Hemoglobin A1c (09/04/2025 7:59 AM CDT) Pathologist [facility] Hgb A1C 5.5 4.0 - 5.6 % Estimated Average Glucose 111 mg/dL [facility] Comment: The ADA recommends reporting an estimated Average Glucose (eAG) with all Hemoglobin A1c results using the equation derived from a study of 507 normal and diabetic adults. Minority populations were underrepresented and children were not included. (Diabetes Care 31:2017-4003, 2008). The eAG is not equivalent to a fasting glucose. Blood 09/04/2025 7:59 AM CDT 09/04/2025 7:59 AM CDT Jim PHAM LAB BLOOD ORDERABLES F inal Result Performing Organization Address [facility] Co de Phone Number [facility] [address] Department [place] [address] * Basic metabolic panel (09/04/2025 7:59 AM CDT) Pathologist [facility] Sodium 136 135 - 145 mmol/L Potassium, pl 3.7 3.3 - 4.9 mmol/L [facility] Chloride 103 97 - 110 mmol/L [facility] CO2 23 22 - 32 mmol/L [facility] Anion gap 10 2 - 15 mmol/L [facility] BUN 15 6 - 25 mg/dL [facility] Creatinine 0.88 0.80 - 1.30 mg/dL [facility] Glucose 93 70 - 199 mg/dL [facility] Comment: Interpretive Data Fasting glucose >/= 126 [...] 2022. Calcium 9.0 8.5 - 10.3 mg/dL [facility] Blood 09/04/2025 7:59 AM CDT 09/04/2025 7:59 AM CDT Holland Ryan MD LAB BLOOD ORDERABLES Final Result Performing Organization Address [facility] Co de Phone Number [facility] [address] Department [place] [address] * Type and screen (09/04/2025 7:58 AM CDT) Alayna, indirect Negative ABO Rh O Negative [facility] Blood 09/04/2025 7:58 AM CDT 09/04/2025 8:[address] [facility] - 09/04/2025 8:45 AM CDT Is this test being ordered in advance for a procedure?->Yes Expected date of procedure:->09/12/25 Has the patient been transfused in the past 3 months?->No Jim PHAM LAB BLOOD BANK TEST OR DERABLES Final Result Performing Organization Address [facility] [facility] Co de Phone Number [facility] [address] Department [place] [address] from Last 3 Months Insurance [employer] Advance Directives For more information, please contact: [phone] * Full Code (Latest Code Status on File) Date Activated Date Inactivated Comments 09/12/2025 5:29 PM 09/14/2025 9:54 PM * Full Code Date Activated Date Inactivated Comments 09/12/2025 5:29 PM 09/12/2025 5:29 PM Care Teams Bait Digger Relationship Specialty Start Date End Date Magaly Harris NP [address] [place] [address] PCP - General Family Medicine 08/04/25
--- OUTSIDE RECORDS SUMMARY | 2025-09-15 04:50 | XMS_ITS | Clinical Summary ---
Author Organization [facility] Address [address] [place] [address] Care Team Providers Care Dispatch Associate Name Role Phone Unavailable Primary Care Provider Unavailabl e Source Comments [facility],non-owned Affiliates and Associated Physician Practices is amultiple site organization consisting of ambulatory clinics and hospital sitesin [place], [place], [place] and [place]. This disclosure is being madepursuant to the Care Everywhere program and may not contain all information available regarding this patient. Last updated 18.[facility] [employer] Allergies No known active allergies Medications * Be aware that medications may not be up to date on this document. Alwaysverify current medications with the patient. busPIRone (BUSPAR) 15 MG tablet Take 15 mg by mouth 2 times daily. Active oxycodone-aceta minophen (PERCOCET) 10-325 MG tablet Take 1 Tab by mouth every 6 hours as needed for Pain. 30 Tab 0 02/05/2011 Active ondansetron (ZOFRAN) 4 MG tablet Take 1 Tab by mouth every 4 hours as needed for Nausea/Vomit ing. 10 Tab 0 02/05/2011 Active tamsulosin CR 24hr (FLOMAX) 0.4 MG capsule Take 1 Cap by mouth daily after breakfast. Take 30 minutes after a meal at the same time each day. 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 Temperature 36.6 C (97.8 F) 02/05/2011 1: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 Respiratory Rate 20 02/05/2011 1: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 Oxygen Saturation 100% 02/05/2011 1: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 Inhaled Oxygen Concentration - - Weight 72.6 kg (160 lb) 02/04/2011 9:31 PM 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 Height 162.6 cm (5' 4) 02/04/2011 9:31 PM 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 Body Mass Index 27.46 02/04/2011 9:31 PM 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 Plan of Treatment Health Maintenance Due Date Last Done Comments LIPID TESTING 1981 HIV SCREENING 1996 HEPATITIS C SCREENING 04/29/1999 DTAP/TDAP/TD VACCINES (1 - Tdap) 2000 HEPATITIS B VACCINE (1 of 3 - 19+ 3-dose series) 2000 HPV VACCINE (1 - 3-dose SCDM series) 2008 DEPRESSION SCREENING 11/30/2024 COVID-19 VACCINE (1 - 2023-2 5 season) 2025 INFLUENZA VACCINE (#1) 2025 ZOSTER VACCINE (1 of 2) 2031 HIB VACCINE Aged Out No longer eligi ble based on patient's age to complete this topic MENINGOCOCCAL (Group B) VACC INE SHARED DECISION-MAKING Aged Out No longer eligibl e based on patient's age to complete this topic MENINGOCOCCAL GROUPS A/C/Y/W VACCINE Aged Out No longer eligible b ased on patient's age to complete this topic PNEUMOCOCCAL VACCINE Aged Out No long er eligible based on patient's age to complete this topic
--- OUTSIDE RECORDS SUMMARY | 2025-09-15 04:50 | XMS_ITS | Encounter Summary ---
Author Organization [facility] Address [address] [place] [address] Care Team Providers Care Vice President Regulatory Name Role Phone Magaly Harris ASSISTANT DIRECTOR OF PUBLIC WORKS Primary Care Provider [phone] Encounter Details Date Type Department Care Team (Late st Contact Info) Description 09/11/2025 Orders Only [facility] - Interventional Radiology [address] [place] [id number] Lexx Hermosillo, RN Social History Tobacco Use Types Packs/Day Years [...] often do you attend chur ch or caodaism services? Never 09/13/2025 Do you belong to any clubs o r organizations such as spiritism groups, unions, fraternal or athletic groups, or [...] any time in the past 12 m [facility], were you homeless or living in a chcf (including now)? No 09/13/2025 [facility] Utilities Answer Date Recorded In the past 12 months has th e [employer] Active, gas, oil, or water [employer] threatened to shut off services in your [...] on file documented as of this encounter Functional Status * AUDIT-C Score Answer Date of Assessment Author 1 09/12/2025 6:03 AM Messi Post RN * Question Answer Date of Assessment Author Q1: How often do you have a drink containing alcohol? Monthly or less 09/12/2025 6:03 AM Janette Post RN Q2: How many drinks containing alcohol do you have on a typical day when you are drinking? 1 or 2 09/12/2025 6:03 AM Janette Post RN Q3: How often do you have six or more drinks on one occasion? Never 09/12/2025 6:03 AM Janette Post RN documented as of this encounter Plan of Treatment Not on file documented as of this encounter Visit Diagnoses Not on filedocumented in this encounter Care Teams Vice President Regulatory Relationship Specialty Start Date End Date Magaly Harris NP [address] [place] [address] PCP - General Family Medicine 08/04/25 documented as of this encounter
--- NOTE | 2025-09-15 05:06 | ED_ITS ---
HPI - Male Genitourinary General Chief complaint: Urogenital-Male Stated complaint: Kirby Problems History of Present Illness HPI Narrative: 45-year-old male with history of kidney stones and indwelling Kirby catheter. Patient presents to the emergency department with inability urinate in a clogged Kirby catheter. He had a urological procedure done at [facility] where he had a kidney stone removed. Kirby catheter was draining upon discharge home. He states he was not having any pain but did have his urinary catheter stops draining in the middle night. Endorse some minor discomfort prior to arrival. No systemic symptoms. Was otherwise in his normal state of health. No urinary complaints otherwise. No fever, chills, back pain. Related Data Allergies Allergy/AdvReac Type Severity Reaction Status Date / Time No Known Allergies Allergy Verified 08/08/25 08:03 Review of Systems Review of Systems: As [facility] Past Medical History Medical History Family history of cancer tonsil Renal lithiasis JOBY (obstructive sleep apnea) Surgical History Surgical History History of lithotripsy Family History Family History Grandparent , lung cancer COPD (chronic obstructive pulmonary disease) Lung cancer Mother Emphysema (subcutaneous) (surgical) resulting from a procedure Hypertension Mother Family history of multiple sclerosis Hypertension Father Patient's father is in good health Grandparent Family history of chronic obstructive pulmonary disease Family history of lung cancer Family history of emphysema Social History Social History Smoking status: Former smoker Tobacco type: cigarettes Smoking end date: 11/30/10 Alcohol intake: never Lack of Transportation: No Lack of Food: Never True Current Housing: I Have Housing Concerned About Future Housing: No Difficulty Paying Gas/Electric Bills: No Difficulty Paying for Meds: No Currently Unemployed: No Education: Bachelor's Degree Difficulty w/ Childcare or Family Care: No Exam Narrative: GENERAL: [Well-appearing, well-nourished, and in no acute distress.] HEAD: [Normocephalic, atraumatic.] EYES: [PERRLA and EOMI.] ENT: Nares clear, no rhinorrhea or epistaxis. Mucous membranes moist. NECK: Supple. CHEST: [Clear to auscultation. No respiratory distress.] HEART: [Regular rate and rhythm]. No murmur heard. [Normal peripheral pulses.] ABDOMEN: [Soft, nondistended], [nontender], [No rigidity or guarding] Kirby catheter in place, drainage some red urine. EXTREMITIES: Normal range of motion. [No edema.] SKIN: Warm, dry, no rash. Previous site of right-sided percutaneous nephrostomy tube clean dry and intact without any drainage or bleeding. NEURO: [No focal deficits]. Alert and oriented [x3.] PSYCH: [Normal mood and affect.] Course Vital Signs Vital signs: Vital Signs Pulse Rate 94 09/15/25 04:30 Respiratory Rate 14 09/15/25 04:30 Blood Pressure 158/92 H 09/15/25 04:30 Pulse Oximetry 98 09/15/25 04:30 Oxygen Delivery Room Air 09/15/25 04:30 Pulse Rate 92 09/15/25 05:54 Respiratory Rate 14 09/15/25 05:54 Blood Pressure 156/89 H 09/15/25 05:54 Pulse Oximetry 98 09/15/25 05:54 Oxygen Delivery Room Air 09/15/25 04:30 MDM - Male Genitourinary MDM Narrative Medical decision making narrative: 45-year-old male with history of kidney stones and indwelling Kirby catheter. Patient presents to the emergency department with inability urinate in a clogged Kirby catheter. He had a urological procedure done at [facility] where he had a kidney stone removed. Kirby catheter was draining upon discharge home. He states he was not having any pain but did have his urinary catheter stops draining in the middle night. Endorse some minor discomfort prior to arrival. No systemic symptoms. Was otherwise in his normal state of health. No urinary complaints otherwise. No fever, chills, back pain. Kirby catheter was successfully irrigated with resolution of patient's obstruction. Urinating freely now, clearing up with some red hematuria which he states was present prior to and after the procedure and expected. Patient has no symptoms at this time and completely resolved. Safe for discharge with Urology follow-up and return precautions. Medical Records Attestation: I reviewed the patient's medical records. Discharge Plan Discharge Clinical Impression: Complication, blocked Kirby catheter Patient Disposition: Home Condition: Stable Instructions: Antibiotic Form, Kirby Catheter Placement and Care (ED) Additional Instructions: We were able to successfully irrigate the Kirby catheter that was clogged and removed the obstruction. If you have any recurrence or inability urinate return to the emergency department otherwise follow-up with your urologist. Patient Language: Bulgarian Prescriptions: No Action alprazolam [Xanax] 0.25 mg tablet 0.25 mg PO TID PRN (Reason: panic attack(s)) Qty: 30 0RF trazodone 100 mg tablet See Rx Instructions .ROUTE .COMPLEX Qty: 90 3RF Dose Instruction: TAKE 1 TABLET BY MOUTH EVERY DAY AT BEDTIME NEEDED FOR INSOMNIA Rx Instructions: TAKE 1 TABLET BY MOUTH EVERY DAY AT BEDTIME NEEDED FOR INSOMNIA. sildenafil [Viagra] 50 mg tablet 50 mg PO DAILY PRN (Reason: sexual activity) Qty: 6 0RF Rx Instructions: administer 30 minutes to 4 hours before activity hydrocodone-acetaminophen 5-325 mg tablet 1 tablet PO Q6H PRN (Reason: pain) Qty: 20 0RF citalopram 40 mg tablet See Rx Instructions .ROUTE .COMPLEX Qty: 90 3RF Dose Instruction: TAKE 1 TABLET BY MOUTH DAILY Rx Instructions: TAKE 1 TABLET BY MOUTH DAILY. Follow-up/Referrals: Magaly Harris, GUILLE-C [Primary Care Provider, [facility]] Time of Disposition: 05:05
--- NOTE | 2025-09-15 05:15 | PC.NURSE ---
Pt catheter irrigated. Pt responded with immediate relief.
[2025-09-15 05:46] VITALS: BP 156/89; PULSE 91; RESP 14; O2SAT 98
--- NOTE | 2025-09-15 05:50 | PC.NURSE ---
This RN called [employer] and received a ride for pt.
[2025-09-15 05:54] VITALS: BP 156/89; PULSE 92; RESP 14; O2SAT 98
== END 2025-09-15 05:46 | disposition home or self-care (01) ==
PROVIDERS: Emergency Provider Student in an Organized Health Care Education/Training Program; PCP Nurse Practitioner Family
DX: T83.091A Other mechanical complication of indwelling urethral catheter, initial encounter (principal); G47.33 Obstructive sleep apnea (adult) (pediatric); Z87.442 Personal history of urinary calculi; Z87.891 Personal history of nicotine dependence; Y84.6 Urinary catheterization as the cause of abnormal reaction of the patient, or of later complication, without mention of misadventure at the time of the procedure
CPT/HCPCS: 99282